=== PATIENT | female | born 1995 | race Two or more races ===

== ENCOUNTER 2022-06-04 19:17 | Emergency (ER) | payer BC ==
[~2022-06-04] VITALS: Ht 160 cm; Wt 66.8 kg
[2022-06-04 19:40] VITALS: BP 118/70
== END 2022-06-04 21:01 | disposition left against medical advice (07) ==
LOC: ER 19:17
DX: O46.91 Antepartum hemorrhage, unspecified, first trimester (principal); Z3A.01 Less than 8 weeks gestation of pregnancy; Z53.21 Procedure and treatment not carried out due to patient leaving prior to being seen by health care provider

== ENCOUNTER → 2024-02-24 | Outpatient (CLI) | payer BC ==
[2024-02-24 15:26] LABS: Basophils # (auto) 0.1 10 ^3/uL (0-0.2); Eosinophils # (auto) 0.2 10 ^3/uL (0-0.8); Hematocrit 39.2 % (36.0-46.0); Hemoglobin 13.2 g/dL (12.2-16.2); Lymphocytes # (auto) 2.6 10 ^3/uL (0.4-5.4); Lymphocytes % (auto) 31.8 % (10.0-50.0); Mean Corpuscular Hemoglobin 28.9 pg (28.0-32.0); Mean Corpuscular Hgb Conc. 33.6 g/dL (32.0-36.0); Monocytes # (auto) 0.5 10 ^3/uL (0-1.3); Neutrophils # (auto) 4.9 10 ^3/uL (1.6-8.6); Neutrophils % (auto) 59.2 % (37.0-80.0); Nucleated Red Blood Cells % 0.1 %; Red Blood Cells 4.56 10^6/uL (4.0-5.20); Red Cell Distribution Width 13.9 % (11.8-14.3); White Blood Cell 8.3 10^3/uL (4.4-10.8)
[2024-02-24 19:18] LABS: Follicle Stimulating Hormone 6.6 IU/L (SEE BELOW); Leuteinizing Hormone 6.8 IU/L
== END | disposition home or self-care (01) ==
LOC: LAB 15:08
PROVIDERS: ATTEND Obstetrics & Gynecology
DX: N93.9 Abnormal uterine and vaginal bleeding, unspecified (principal)
CPT/HCPCS: 36415; 82670; 83001; 83002; 84403; 84443; 85025

== ENCOUNTER 2024-08-01 09:16 | Emergency (ER) | payer BC ==
[~2024-08-01] VITALS: Ht 160 cm; Wt 71.3 kg
--- NOTE | 2024-08-01 09:56 | ED.PDOC ---
General HPI Comments 28-year-old female came in because of suprapubic flank pain for the past three months. She has been having on and off pain with no radiation of the pain. Pain is mild. Denies nausea vomiting. She does state that for the past week she has been having on and off spotting. She has not seen her primary care physician. She did have six pregnancies four live to miscarriages. She denies any other symptoms. Chief Complaint: Urinary Time Seen by MD: 09:18 Primary Care Provider: NONE Reviewed notes: Nurses Notes, Medications, Allergies Allergies: Coded Allergies: NO KNOWN ALLERGIES (Unverified , 08/01/24) Home Meds Active Scripts Nitrofurantoin Monohydrate Mac (Macrobid) 100 Mg Cap, 100 MG PO BID for 7 Days, #14 CAP Prov:SHERLY IBRAHIM MD 08/01/24 Information Source: Patient Mode of Arrival: Ambulatory Severity: Mild Timing: Months Duration: Since onset Onset: Spontaneous associated signs and symptoms: Flank Pain Past Medical History PAST MEDICAL HISTORY: Denies Surgical History: Denies all surgeries MGMT SPECIALIST History: No Pertinent MGMT SPECIALIST History Social History Smoker: Non-Smoker Alcohol: Denies ETOH Use Drugs: Denies Drug Use Constitutional: denies: chills, diaphoresis, fatigue, fever, malaise, sweats, weakness, others EENTM: denies: blurred vision, double vision, ear bleeding, ear discharge, ear drainage, ear pain, ear ringing, eye pain, eye redness, hearing loss, mouth pain, mouth swelling, nasal discharge, nose bleeding, nose congestion, nose pain, photophobia, tearing, throat pain, throat swelling, voice changes, others Respiratory: denies: cough, hemoptysis, orthopnea, SOB at rest, shortness of breath, SOB with excertion, stridor, wheezing, others Cardiovascular: denies: chest pain, dizzy spells, diaphoresis, Dyspnea on exertion, edema, irregular heart beat, left arm pain, lightheadedness, palpitations, PND, syncope, others Gastrointestinal: denies: abdomen distended, abdominal pain, blood streaked bowels, constipated, diarrhea, dysphagia, difficulty swallowing, hematemesis, melena, nausea, poor appetite, poor fluid intake, rectal bleeding, rectal pain, vomiting, others Genitourinary: reports: flank pain; denies: abnormal vagina bleeding, burning, dyspareunia, dysuria, frequency, hematuria, incontinence, pain, , vagina discharge, urgency, others Neurological: denies: dizziness, fainting, headache, left sided numbness, left sided weakness, numbness, paresthesia, pre-existing deficit, right sided numbness, right sided weakness, seizure, speech problems, tingling, tremors, weakness, others Integumetry: denies: bruises, change in color, change in hair/nails, dryness, laceration, lesions, lumps, rash, wounds, others Allergic/Immunocompromised: denies: Difficulty Healing, Frequent Infections, Hives, Itching, others Hematologic/Lymphatic: denies: anemia, blood clots, easy bleeding, easy bruising, swollen glands, others Endocrine: denies: excessive hunger, excessive sweating, excessive thirst, excessive urination, flushing, intolerance to cold, intolerance to heat, unexplained weight gain, unexplained weight loss, others Psychiatric: denies: anxiety, bipolar disorder, depression, hopeless, panic disorder, schizophrenia, sleepless, suicidal, others Physical Exam General Appearance: Moderate Distress HEENT: Normal ENT Inspection, Pharynx Normal, TMs Normal Neck: Full Range of Motion, Non-Tender, Normal, Normal Inspection Respiratory: Chest Non-Tender, Lungs Clear, No Accessory Muscle Use, No Respira tory Distress, Normal Breath Sounds Cardiovascular: No Edema, No JVD, No Murmur, No Gallop, Normal Peripheral Pulses, Regular Rate/Rhythm Breast Exam: Deferred Gastrointestinal: No Organomegaly, Non Tender, No Pulsatile Mass, Normal Bowel Sounds, Soft Genitalia: Deferred Pelvic: Deferred Rectal: Deferred Extremities: No calf tenderness, Normal capillary refill, Normal inspection, Normal range of motion, Non-tender, No pedal edema Musculoskeletal : Apperance: Normal Neurologic: Alert, lay out machine operator II-XII nml as Tested, No Motor Deficits, Normal Affect, Normal Mood, No Sensory Deficits Cerebellar Function: Normal Reflexes: Normal Skin: Dry, Normal Color, Warm Peripheral Pulses: 3+ Radial (R), 3+ Radial (L) Lymphatic: No Adenopathy Was a procedure done? Was a procedure done?: No Differential Diagnosis Kidney stone (Female): Musculoskeletal pain, Urinary obstruction, Urolithiasis X-Ray, Labs, Meds, VS Vital Signs Date Time Temp Pulse Resp B/P (MAP) Pulse Ox O2 Delivery O2 Flow Rate FiO2 08/01/24 10:38 98.3 78 16 112/78 (89) 100 98.3 08/01/24 10:38 78 16 100 Room Air* 0 21 08/01/24 09:20 98.7 75 18 122/71 (88) 97 Lab Test 08/01/24 09:51 08/01/24 09:25 Range/Units White Blood Count 9.1 4.4-10.8 10^3/uL Red Blood Count 4.45 4.0-5.20 10^6/uL Hemoglobin 13.6 12.2-16.2 g/dL Hematocrit 39.4 36.0-46.0 % Mean Corpuscular Volume 88.4 80.0-100.0 fL Mean Corpuscular Hemoglobin 30.5 28.0-32.0 pg Mean Corpuscular Hemoglobin Concent 34.5 32.0-36.0 g/dL Red Cell Distribution Width 13.1 11.8-14.3 % Platelet Count 322 140-450 10^3/uL Mean Platelet Volume 8.6 6.9-10.8 fL Neutrophils (%) (Auto) 74.3 37.0-80.0 % Lymphocytes (%) (Auto) 17.2 10.0-50.0 % Monocytes (%) (Auto) 6.0 0.0-12.0 % Eosinophils (%) (Auto) 1.9 0.0-7.0 % Basophils (%) (Auto) 0.6 0.0-2.0 % Neutrophils # (Auto) 6.8 1.6-8.6 10 ^3/uL Lymphocytes # (Auto) 1.6 0.4-5.4 10 ^3/uL Monocytes # (Auto) 0.5 0-1.3 10 ^3/uL Eosinophils # (Auto) 0.2 0-0.8 10 ^3/uL Basophils # (Auto) 0.1 0-0.2 10 ^3/uL Nucleated Red Blood Cells 0.0 % Sodium Level 138 136-145 mmol/L Potassium Level 4.4 3.5-5.1 mmol/L Chloride Level 106 98-107 mmol/L Carbon Dioxide Level 28 20-31 mmol/L Anion Gap 4 L 5-15 Blood Urea Nitrogen 13 9-23 mg/dL Creatinine 0.66 0.550-1.02 mg/dL Glomerular Filtration Rate Calc 122 >90 mL/min BUN/Creatinine Ratio 19.7 10.0-20.0 Serum Glucose 94 74-106 mg/dL Calcium Level 10.2 8.7-10.4 mg/dL Beta HCG, Quantitative 0.3 L 1.5-4.2 mIU/mL Urine Color Straw Yellow Urine Clarity Clear Clear Urine pH 5.5 5.0-9.0 Urine Specific [place] 1.004 1.001-1.035 Urine Protein 1+ H Negative Urine Ketones Negative Negative Urine Blood 3+ H Negative /uL Urine Nitrite Negative Negative Urine Bilirubin Negative Negative Urine Urobilinogen Normal Negative mg/dL Urine Leukocyte Esterase 2+ Negative /uL Urine RBC 1 0 - 4 /hpf Urine WBC 29 0 - 5 /hpf Urine Squamous Epithelial Cells None seen <5 /hpf Urine Bacteria None seen None Seen /hpf Urine Glucose Normal Normal mg/dL Urine Test Negative Negative Patient alert pain Complaining of suprapubic discomfort along with flank pain. Vitals stable. Answering all questions. Chronic symptoms. Reviewed her history. Abdomen is soft nontender. Did not do ultrasound because physical examination is pristine. Kidney function within normal limits. UA shows UTI. Was given prescription of Macrobid antibiotic. Explained to the patient that she will need follow up with her primary care physician. Was told to come back if there is any problem. Time of 1ST Reevaluation: 09:55 Reevaluation 1ST: Unchanged Patient Education/Counseling: Diagnosis, Treatment, Prognosis, Need For Follow Up Family Education/Counseling: No Family Present Departure 1 Departure Time of Disposition: 09:56 Impression: Primary Impression: Vaginal bleeding Additional Impression: UTI (urinary tract infection) Qualified Codes: N30.00 - Acute cystitis without hematuria Disposition: 01 HOME / SELF CARE / HOMELESS Condition: Good e-Prescriptions Nitrofurantoin Monohydrate Mac (Macrobid) 100 Mg Cap 100 MG PO BID for 7 Days, #14 CAP Prov: SHERLY IBRAHIM MD 08/01/24 Discharged With: Self Critical Care Note Critical Care Time?: No Stability Stability form required: No Heart Score Heart Score: Heart Score Response (Comments) Value History N/A 0 EKG N/A 0 Age N/A 0 Risk Factors N/A 0 Troponin N/A 0 Total 0 SHERLY IBRAHIM MD Aug 01, 2024 09:56
[2024-08-01 10:00] LABS: Urine Bacteria None Seen /hpf (None Seen)
[2024-08-01 10:13] LABS: Basophils # (auto) 0.1 10 ^3/uL (0-0.2); Basophils % (auto) 0.6 % (0.0-2.0); Eosinophils # (auto) 0.2 10 ^3/uL (0-0.8); Eosinophils % (auto) 1.9 % (0.0-7.0); Hematocrit 39.4 % (36.0-46.0); Hemoglobin 13.6 g/dL (12.2-16.2); Lymphocytes # (auto) 1.6 10 ^3/uL (0.4-5.4); Lymphocytes % (auto) 17.2 % (10.0-50.0); Mean Corpuscular Hemoglobin 30.5 pg (28.0-32.0); Mean Corpuscular Hgb Conc. 34.5 g/dL (32.0-36.0); Mean Corpuscular Volume 88.4 fL (80.0-100.0); Monocytes # (auto) 0.5 10 ^3/uL (0-1.3); Neutrophils # (auto) 6.8 10 ^3/uL (1.6-8.6); Neutrophils % (auto) 74.3 % (37.0-80.0); Platelet Count (auto) 322 10^3/uL (140-450); Red Blood Cells 4.45 10^6/uL (4.0-5.20); Red Cell Distribution Width 13.1 % (11.8-14.3); White Blood Cell 9.1 10^3/uL (4.4-10.8)
[2024-08-01 10:21] LABS: Chloride 106 mmol/L (98-107); Potassium 4.4 mmol/L (3.5-5.1); Sodium 138 mmol/L (136-145)
[2024-08-01 10:22] LABS: Anion Gap 4 (5-15); Calcium 10.2 mg/dL (8.7-10.4); Carbon Dioxide 28 mmol/L (20-31)
[2024-08-01 10:23] LABS: Urine Blood 3+ /uL (Negative); Urine Clarity Clear (Clear); Urine Protein, UAD 1+ (Negative); Urine Specific Gravity 1.004 (1.001-1.035); Urine Urobilinogen Normal (Negative); Urine WBC 29 /hpf (0 - 5); Urine pH 5.5 (5.0-9.0)
[2024-08-01 10:25] LABS: Urine Color Straw (Yellow)
[2024-08-01 10:27] LABS: BUN/Creatinine Ratio 19.7 (10.0-20.0); Blood Urea Nitrogen 13 mg/dL (9-23); Glucose 94 mg/dL (74-106)
[2024-08-01 10:38] VITALS: PULSE 78; RESP 16; O2SAT 100
[2024-08-01] MEDS ORDERED: NITR-87 PO (11:31)
[2024-08-01 12:08] VITALS: BP 115/79; PULSE 79; RESP 16; TEMP 98.2; O2SAT 99
== END 2024-08-01 12:00 | disposition home or self-care (01) ==
LOC: ER 09:16
DX: N93.9 Abnormal uterine and vaginal bleeding, unspecified (principal); R10.2 Pelvic and perineal pain; N39.0 Urinary tract infection, site not specified
CPT/HCPCS: 36415; 80048; 81001; 81025; 84702; 85025

== ENCOUNTER 2025-03-27 20:31 | Inpatient (IN) | payer BC ==
[~2025-03-27] VITALS: Ht 160 cm; Wt 75.0 kg
[~2025-03-27 20:31] MED LIST: NITR-87 PO
[2025-03-27 21:00] VITALS: PULSE 113; RESP 24; O2SAT 99
--- NOTE | 2025-03-27 21:11 | ED.PDOC ---
History of Present Illness HPI Comments 29 y/o F presents with spouse for c/c abnormal vaginal bleeding, with associated clot production and back and bilateral pelvic pain, shortness of breath, and lightheadedness. Patient endorses on being 7x weeks with her 8th , currently ([id number]). Bleeding is reported to have begun with light spotting at around 1600, this afternoon, and has, progressively, worsened since then. Patient reports on going through a miscarriage, currently, after being told her was immanent of having one following previous [facility] appointment, where ultrasound showed absence of a heartbeat, 1x week ago. Patient informs of going through 5x pads, already, with last one having to be ch anged out 20x minutes prior to arrival. Only significant history of preDM. No recent injuries, falls, or sexual intercourse endorsed. Denies any urinary symptoms, abdominal pain, cough, congestion, dizziness, fever, chills, or further associated symptoms. Chief Complaint: Vaginal Bleed Time Seen by MD: 20:45 Primary Care Provider: NONE Reviewed Notes: Nurses Notes, Medications, Allergies Allergies: Coded Allergies: NO KNOWN ALLERGIES (Unverified , 08/01/24) Home Meds Active Scripts Nitrofurantoin Monohydrate Mac (Macrobid) 100 Mg Cap, 100 MG PO BID for 7 Days, #14 CAP Prov:SHERLY IBRAHIM MD 08/01/24 Information Source: Patient Mode of Arrival: Wheelchair Severity: Moderate Timing: Hours Duration: Since onset Prehospital treatment: None Review of Systems: REVIEW OF SYSTEMS: No fever, no chills, HEENT: No neck pain, no blurred vision Cardiac: Lightheadedness. No chest pain. No palpitations. Lungs: Shortness of breath, GI: No abdominal pain, no vomiting : Vaginal bleeding Musculoskeletal: Pelvic and back pain Skin: No rash, no wound Neuro: No headache, no dizziness, no syncope Vital Signs Vital Signs Date Time Temp Pulse Resp B/P (MAP) Pulse Ox O2 Delivery O2 Flow Rate FiO2 03/28/25 08:00 Room Air* 0 21 03/28/25 08:00 98.3 82 15 100/56 (71) 97 98.3 Physical Exam General: Awake, alert and oriented. No acute distress. Skin: Skin in warm, dry and intact without rashes or lesions. HEENT: The head is normocephalic and atraumatic. Conjunctivae are clear without exudates or hemorrhage. Sclera is non-icteric. Neck: Normal range of motion. No JVD. Cardiac: Regular rate Gastrointestinal: Suprapubic tenderness Respiratory: No signs of respiratory distress. No Stridor. Extremities: Upper and lower extremities are atraumatic in appearance without d eformity. Neurological: The patient is awake, alert and oriented to person, place, and time with normal speech. Speech is clear. There is no facial asymmetry. Psychiatric: Appropriate mood and affect. Good judgement and insight. Past Medical History Past Medical History (Other): Pre diabetes Surgical History: Denies all surgeries EVENTS ADMINISTRATIVE ASSISTANT History: No Pertinent EVENTS ADMINISTRATIVE ASSISTANT History 8 Para 4 AB 4 Social History Smoker: Non-Smoker Alcohol: Denies ETOH Use Drugs: Denies Drug Use Was a procedure done? Was a procedure done?: No EKG EKG : Pulse Rate (adult): 81 [place]: Normal Cardiac Rhythm: NSR Block: None Hypertrophy: None ST: Normal Differential Dx Considerations may include: Differential diagnoses considered include: Abdominal aortic aneurysm, WI, esophageal rupture, intestinal obstruction, mesenteric ischemia, perforated viscus or solid organ rupture, CHF with hepatomegaly, pneumonia, abscess, appendicitis, biliary disease, diverticulitis, gastritis, gastroenteritis, hepatitis, hernia, inflammatory bowel disease, pancreatitis, peptic ulcer disease, urinary tract infection, ureteral colic, constipation, GERD, irritable syndrome, abdominal wall pain, nonspecific abdominal pain, herpes zoster, nephrolithiasis. [ ]Also ruptured ectopic , ovarian torsion/cyst, tubo- ovarian abscess, PID, endometriosis, mittleschmerz, miscarriage X-Ray, Labs, Meds, VS Vital Signs Date Time Temp Pulse Resp B/P (MAP) Pulse Ox O2 Delivery O2 Flow Rate FiO2 03/28/25 08:00 Room Air* 0 21 03/28/25 08:00 98.3 82 15 100/56 (71) 97 98.3 03/28/25 08:00 97 03/28/25 06:00 74 16 103/58 (73) 97 03/28/25 04:59 81 03/28/25 04:00 78 17 101/55 (70) 95 03/28/25 02:20 99 Room Air* 0 21 03/28/25 02:00 98.0 90 16 104/62 (76) 98 98.0 03/28/25 01:00 98.1 85 18 104/56 (72) 99 98.1 03/27/25 23:00 100 18 115/67 (83) 98 03/27/25 21:00 113 24 99 Room Air* 0 21 03/27/25 21:00 97.9 119 24 104/53 (70) 97 97.9 03/27/25 20:51 97.7 145 16 99/77 (84) 96 97.7 Lab Test 03/28/25 05:24 03/28/25 00:38 03/27/25 21:30 03/27/25 20:54 Range/Units Hemoglobin 8.6 L 9.9 #L 12.0 L 12.2-16.2 g/dL Hematocrit 25.3 #L 28.9 #L 35.0 L 36.0-46.0 % White Blood Count 11.3 H 4.4-10.8 10^3/uL Red Blood Count 4.03 4.0-5.20 10^6/uL Mean Corpuscular Volume 86.9 80.0-100.0 fL Mean Corpuscular Hemoglobin 29.7 28.0-32.0 pg Mean Corpuscular Hemoglobin Concent 34.2 32.0-36.0 g/dL Red Cell Distribution Width 13.2 11.8-14.3 % Platelet Count 390 140-450 10^3/uL Mean Platelet Volume 8.4 6.9-10.8 fL Neutrophils (%) (Auto) 70.3 37.0-80.0 % Lymphocytes (%) (Auto) 21.1 10.0-50.0 % Monocytes (%) (Auto) 6.7 0.0-12.0 % Eosinophils (%) (Auto) 1.3 0.0-7.0 % Basophils (%) (Auto) 0.6 0.0-2.0 % Neutrophils # (Auto) 8.0 1.6-8.6 10 ^3/uL Lymphocytes # (Auto) 2.4 0.4-5.4 10 ^3/uL Monocytes # (Auto) 0.8 0-1.3 10 ^3/uL Eosinophils # (Auto) 0.2 0-0.8 10 ^3/uL Basophils # (Auto) 0.1 0-0.2 10 ^3/uL Nucleated Red Blood Cells 0.0 % Sodium Level 138 136-145 mmol/L Potassium Level 3.7 3.5-5.1 mmol/L Chloride Level 105 98-107 mmol/L Carbon Dioxide Level 22 20-31 mmol/L Anion Gap 11 5-15 Blood Urea Nitrogen 10 9-23 mg/dL Creatinine 0.65 0.550-1.02 mg/dL Glomerular Filtration Rate Calc 121 >90 mL/min BUN/Creatinine Ratio 15.4 10.0-20.0 Serum Glucose 126 H 74-106 mg/dL Calcium Level 9.9 8.7-10.4 mg/dL Beta HCG, Quantitative 25226.0 H 1.5-4.2 mIU/mL Urine Color Colorless Yellow Urine Clarity Turbid H Clear Urine pH 5.5 5.0-9.0 Urine Specific [place] 1.009 1.001-1.035 Urine Protein Trace H Negative Urine Ketones Negative Negative Urine Blood 3+ H Negative /uL Urine Nitrite Negative Negative Urine Bilirubin Negative Negative Urine Urobilinogen Normal Negative mg/dL Urine Leukocyte Esterase 1+ Negative /uL Urine RBC 1338 0 - 4 /hpf Urine Microscopic WBC 5 0-5 /HPF Urine Squamous Epithelial Cells None seen <5 /hpf Urine Bacteria None seen None Seen /hpf Urine Mucus Few None Seen Urine Glucose Normal Normal mg/dL Test 03/27/25 20:50 Range/Units POC Glucose 126 H 70-106 mg/dl Current Medications Medications (Trade) Dose Ordered Sig/Ingrid Route Start Time Stop Time Status Last Admin Acetaminophen (Tylenol Tablet Or Capsule) 1,000 mg ONCE ONCE PO 03/27/25 21:15 03/27/25 21:16 DC 03/27/25 21:23 Ketorolac Tromethamine (Toradol Injection) 15 mg ONCE ONCE IV 03/28/25 00:30 03/28/25 00:31 DC 03/28/25 00:25 Sodium Chloride 1,000 ml @ 1,000 mls/hr Q1H ONCE IV 03/28/25 00:30 03/28/25 01:29 DC 03/27/25 22:15 Sodium Chloride 1,000 ml @ 1,000 mls/hr Q1H ONCE IV 03/28/25 00:30 03/28/25 01:29 DC 03/28/25 00:25 Oxytocin 1,000 ml @ 150 mls/hr Q6H40M ONCE IV 03/28/25 03:00 03/28/25 09:39 DC 03/28/25 04:52 [place] [id number] Ph: [phone] DIAGNOSTIC IMAGING Diagnostic Imaging Report : [id number] Signed PATIENT: SHEREE AREVALO ACCT: [id number] UNIT: [id number] : 1995 LOC: ER ROOM / BED: / AGE / SEX: 29 / F ADM STATUS: REG ER SERVICE 04 ORDERING PHYSICIAN: TOLU RAZO MD PROCEDURE(s): OB4US - OB ULTRASOUND COMP LESS 14WKS REASON: Pelvic Pain ORDER NUMBER(s): [id number], ACCESSION NUMBER(s): [id number] OB ULTRASOUND <14 WEEKS: HISTORY: Pelvic Pain TECHNIQUE: Multiple real-time grayscale sonographic images of the pelvis with duplex Doppler color flow, spectral and M-mode analysis. TRANSDUCERS: COMPARISON: None FINDINGS: Endometrium measures approximately 13 mm in thickness with mildly heterogeneous echogenicity and small amount of fluid. No intrauterine gestational sac is present. Right ovary measures approximately 2.8 x 2.8 x 2.4 cm and appears unremarkable with normal Doppler color flow. Left ovary measures approximately 2.6 x 1.7 x 1.9 cm and appears unremarkable with normal Doppler color flow. No evidence of pelvic mass or free fluid/fluid collection. IMPRESSION: Endometrium measures approximately 13 mm in thickness with mildly heterogeneous echogenicity and small amount of fluid. No intrauterine gestational sac is present. ATED BY: MARKEL MUSTAFA MD DICTATED DATE/TIME: 03/27/252344 SIGNED BY: MARKEL MUSTAFA MD SIGNED DATE/TIME: 03/27/252344 CC: Time of 1ST Reevaluation: 21:15 Reevaluation 1ST: Unchanged Patient Education/Counseling: Treatment, Other (v) Family Education/Counseling: Treatment, Other (need for admission ) SEPSIS Sepsis Screen Date sepsis recognized/suspect: Mar 27, 2025 Time Sepsis recognized/suspect: 2050 Recent Procedure: No On Antibiotic Therapy: No Respiratory Rate >20: No Heart Rate >90: Yes Temp<36 C (96.8 F) or >38.3 C: No SBP <90 or MAP <65 mmHG: No New Acute Mental Status Change: No Is the patient on CPAP, BIPAP,: No Physician Orders Ob Ultrasound Comp Less 14wks (03/27/25 21:05) Ob Trans Vaginal Us (03/27/25 ) * Night Worker Consultation (03/28/25 02:49) Vital Signs Date Time Temp Pulse Resp B/P (MAP) Pulse Ox O2 Delivery O2 Flow Rate FiO2 03/28/25 08:00 Room Air* 0 21 03/28/25 08:00 98.3 82 15 100/56 (71) 97 98.3 03/28/25 08:00 97 03/28/25 06:00 74 16 103/58 (73) 97 03/28/25 04:59 81 03/28/25 04:00 78 17 101/55 (70) 95 03/28/25 02:20 99 Room Air* 0 21 03/28/25 02:00 98.0 90 16 104/62 (76) 98 98.0 03/28/25 01:00 98.1 85 18 104/56 (72) 99 98.1 03/27/25 23:00 100 18 115/67 (83) 98 03/27/25 21:00 113 24 99 Room Air* 0 21 03/27/25 21:00 97.9 119 24 104/53 (70) 97 97.9 03/27/25 20:51 97.7 145 16 99/77 (84) 96 97.7 Laboratory Tests Test 03/27/25 21:30 White Blood Count 11.3 10^3/uL (4.4-10.8) H Departure 1 Departure Time of Disposition: 02:58 Impression: Primary Impression: Miscarriage Additional Impressions: Vaginal bleeding Anemia Disposition: ADMITTED INPATIENT Condition: Stable Comments 29-year-old female with miscarriage and continued vaginal bleeding. Patient needs declined from -9.9/28.9 during the ED observation @[address] AYALA (child care leader) RECOMMENDATION IS LR W/ 20 UNITS OF PITOCIN AT 150 CC/HR X 3 HRS CYTOTEC VAGINALLY DOSE: 200 MCG X 4 TABS =800 MCG TOTAL WILL NOT BENEFIT FROM D&C AT THIS TIME DISCUSSED RECOMMENDATIONS WITH PATIENT. SHE DECLINED CYTOTEC. Patient admitted to hospitalist service for further treatment, evaluation and monitoring. Extensive evaluation was performed in attempt to identify or rule out: (See differential diagnosis section) The following tests were ordered, and results were reviewed by me and discussed with patient: (See diagnostic results section) The following test were independently interpreted by me: N/A I reviewed and agreed with the following test results read by other providers: Pelvic ultrasound I reviewed the following notes from the pt's past medical encounters: June 04, 2022 and August 01, 2024 encounters for vaginal bleeding/cramping + preg and vaginal bleeding, respectively Additional information was gathered from interviewing the following independent historians: N/A Discussion of management or test interpretation with external physician/other qualified health home health care social worker: DOCTOR AYALA Decision regarding hospitalization or escalation of hospital level of care: Risk and benefits of admission for further treatment of patient's condition was considered. Due to patient's current clinical condition, high risk of decline and poor outcome if discharged and need for further inpatient management and monitoring, patient will be admitted to the hospital. Critical Care Note Critical Care Time?: No Stability Stability form required: No Heart Score Heart Score: Heart Score Response (Comments) Value History N/A 0 EKG N/A 0 Age N/A 0 Risk Factors N/A 0 Troponin N/A 0 Total 0 I personally scribed for TOLU RAOZ MD ([email or web address]) on 03/27/25 at 21:11. Electronically submitted by David Holman ([email or web address]). I personally scribed for TOLU RAZO MD ([email or web address]) on 03/28/25 at 04:59. Electronically submitted by David Holman ([email or web address]). TOLU RAZO MD Mar 27, 2025 21:11
[2025-03-27] MEDS: ACETAMINOPHEN 500 MG TAB or CAP PO ONE (21:23)
[2025-03-27 21:45] LABS: Hematocrit 35.0 % (36.0-46.0); Hemoglobin 12.0 g/dL (12.2-16.2); Mean Corpuscular Hemoglobin 29.7 pg (28.0-32.0); Mean Corpuscular Volume 86.9 fL (80.0-100.0); Nucleated Red Blood Cells % 0.0 %
[2025-03-27 21:52] LABS: Chloride 105 mmol/L (98-107); Potassium 3.7 mmol/L (3.5-5.1); Sodium 138 mmol/L (136-145)
[2025-03-27 21:53] LABS: Anion Gap 11 (5-15); Calcium 9.9 mg/dL (8.7-10.4); Carbon Dioxide 22 mmol/L (20-31)
[2025-03-27 21:58] LABS: BUN/Creatinine Ratio 15.4 (10.0-20.0); Blood Urea Nitrogen 10 mg/dL (9-23)
[2025-03-27 21:59] LABS: Glucose 126 mg/dL (74-106)
[2025-03-27] MEDS: SODIUM CHLORIDE 0.9% 1,000 ML IV ONE (22:15)
--- NOTE | 2025-03-27 23:48 | DVH ---
OB ULTRASOUND <14 WEEKS: HISTORY: Pelvic Pain TECHNIQUE: Multiple real-time grayscale sonographic images of the pelvis with duplex Doppler color f low, spectral and M-mode analysis. TRANSDUCERS: COMPARISON: None FINDINGS: Endometrium measures approximately 13 mm in thickness with mildly heterogeneous echogenicity and smal l amount of fluid. No intrauterine gestational sac is present. Right ovary measures approximately 2.8 x 2.8 x 2.4 cm and appears unremarkable with normal Doppler co vidal flow. Left ovary measures approximately 2.6 x 1.7 x 1.9 cm and appears unremarkable with normal Doppler col or flow. No evidence of pelvic mass or free fluid/fluid collection. IMPRESSION: Endometrium measures approximately 13 mm in thickness with mildly heterogeneous echogenicity and smal l amount of fluid. No intrauterine gestational sac is present.
[2025-03-28] MEDS: KETOROLAC TROMETH 30 MG/ML 1ML VIAL IV ONE (00:25)
[2025-03-28] MEDS: SODIUM CHLORIDE 0.9% 1,000 ML IV ONE (00:25)
[2025-03-28 01:16] LABS: Hematocrit 28.9 % (36.0-46.0); Hemoglobin 9.9 g/dL (12.2-16.2)
[2025-03-28 02:20] VITALS: O2SAT 99
[2025-03-28 02:21] LABS: Urine Protein, UAD TRACE (Negative)
[2025-03-28] MEDS: LACT. RINGERS/OXYTOCIN 20UNITS 1,000 ML IV ONE (04:52)
[2025-03-28 05:49] LABS: Hematocrit 25.3 % (36.0-46.0); Hemoglobin 8.6 g/dL (12.2-16.2)
[2025-03-28] MEDS ORDERED: DOCUSATE SOD 100 MG CAP PO PRN (08:15)
[2025-03-28] MEDS ORDERED: ACETAMINOPHEN 325 MG TAB PO PRN (08:15)
[2025-03-28] MEDS ORDERED: HYDROcodone-ACET 5/325MG TAB PO PRN (08:15)
[2025-03-28] MEDS ORDERED: ONDANSETRON HCL 4 MG/2 ML VIAL IV PRN (08:15)
--- NOTE | 2025-03-28 08:19 | DVHHP2 ---
History of Present Illness Reason for Visit: Vagninal Bleeding History of Present Illness Shamika Read is a 29-year-old female with no significant past medical history, who came in for vaginal bleeding. Patient was about 7 weeks . Last week she went to the doctor and was told there were no heart tones, and to wait she would pass the baby naturally. Yesterday about 1600 she states she began bleeding at home. She passed the baby without a problem, but then she began to bleed heavily. The bleeding continued to increase with large clots being passed prompting her to come to the hospital. Past Surgical History: None Family History: None Smoke: No ALCOHOL: none Drugs: None Lives: with Family Domestic Violence: Neg Review of Systems Constitutional: Yes: Weakness; No: Fever, Chills, Sweats, Malaise, Other Eyes: No: Pain, Vision change, Conjunctivae inflammation, Eyelid inflammation, Other, Redness ENT: No: Ear pain, Ear discharge, Nose pain, Nose discharge, Nose congestion, Mouth pain, Mouth swelling, Throat pain, Throat swelling, Other Respiratory: No: Cough, Dry, Shortness of breath, SOB with excertion, Wheezing, Hemoptysis, Pleuritic Pain, Sputum, Wheezing, Other Cardiovascular: No: Chest Pain, Palpitations, Orthopnea, Paroxysmal Noc. Dyspnea, Edema, Lt Headedness, Other Gastrointestinal: Abdominal Pain (Pelvic), Other (Heavy vaginal bleeding); No: Nausea, Vomiting, Diarrhea, Constipation, Melena, Hematochezia Genitourinary: No Dysuria, No Frequency, No Incontinence, No Hematuria, No Retention, No Other Musculoskeletal: No: other, neck pain, shoulder pain, arm pain, back pain, hand pain, leg pain, foot pain Skin: No: Rash, Lesions, Jaundice, Bruising, Other Neurological: No: Weakness, Numbness, Incoordination, Change in speech, Confusion, Seizures, Other Allergies: Coded Allergies: NO KNOWN ALLERGIES (Unverified , 08/01/24) Exam Vital Signs Vital Signs Date Time Temp Pulse Resp B/P (MAP) Pulse Ox O2 Delivery O2 Flow Rate FiO2 03/28/25 08:00 97 03/28/25 06:00 16 103/58 (73) 97 03/28/25 02:20 Room Air* 0 21 03/28/25 02:00 98.0 98.0 General Appearance: Alert, Oriented X3, Cooperative, mild distress HEENT: Atraumatic, PERRLA Respiratory: Clear to auscultation, Normal air movement Cardiovascular: Regular rate, Normal S1, Normal S2 Abdominal: Normal bowel sounds, Soft, Other (pelvic pain, heavy vaginal blee ding) Extremities: No clubbing, No cyanosis, No edema, Normal pulses, No tenderness/swelling Skin: No rashes, No breakdown, No significant lesion Neuro: Normal gait, Normal speech, Strength at 5/5 X4 ext Psych/Mental Status: Mental status NL, Mood NL Labs/Xrays Labs Test 03/28/25 05:24 03/27/25 21:30 03/27/25 20:54 03/27/25 20:50 Range/Units Hemoglobin 8.6 L 12.2-16.2 g/dL Hematocrit 25.3 #L 36.0-46.0 % White Blood Count 11.3 H 4.4-10.8 10^3/uL Red Blood Count 4.03 4.0-5.20 10^6/uL Mean Corpuscular Volume 86.9 80.0-100.0 fL Mean Corpuscular Hemoglobin 29.7 28.0-32.0 pg Mean Corpuscular Hemoglobin Concent 34.2 32.0-36.0 g/dL Red Cell Distribution Width 13.2 11.8-14.3 % Platelet Count 390 140-450 10^3/uL Mean Platelet Volume 8.4 6.9-10.8 fL Neutrophils (%) (Auto) 70.3 37.0-80.0 % Lymphocytes (%) (Auto) 21.1 10.0-50.0 % Monocytes (%) (Auto) 6.7 0.0-12.0 % Eosinophils (%) (Auto) 1.3 0.0-7.0 % Basophils (%) (Auto) 0.6 0.0-2.0 % Neutrophils # (Auto) 8.0 1.6-8.6 10 ^3/uL Lymphocytes # (Auto) 2.4 0.4-5.4 10 ^3/uL Monocytes # (Auto) 0.8 0-1.3 10 ^3/uL Eosinophils # (Auto) 0.2 0-0.8 10 ^3/uL Basophils # (Auto) 0.1 0-0.2 10 ^3/uL Nucleated Red Blood Cells 0.0 % Sodium Level 138 136-145 mmol/L Potassium Level 3.7 3.5-5.1 mmol/L Chloride Level 105 98-107 mmol/L Carbon Dioxide Level 22 20-31 mmol/L Anion Gap 11 5-15 Blood Urea Nitrogen 10 9-23 mg/dL Creatinine 0.65 0.550-1.02 mg/dL Glomerular Filtration Rate Calc 121 >90 mL/min BUN/Creatinine Ratio 15.4 10.0-20.0 Serum Glucose 126 H 74-106 mg/dL Calcium Level 9.9 8.7-10.4 mg/dL Beta HCG, Quantitative 48492.0 H 1.5-4.2 mIU/mL Urine Color Colorless Yellow Urine Clarity Turbid H Clear Urine pH 5.5 5.0-9.0 Urine Specific [place] 1.009 1.001-1.035 Urine Protein Trace H Negative Urine Ketones Negative Negative Urine Blood 3+ H Negative /uL Urine Nitrite Negative Negative Urine Bilirubin Negative Negative Urine Urobilinogen Normal Negative mg/dL Urine Leukocyte Esterase 1+ Negative /uL Urine RBC 1338 0 - 4 /hpf Urine Microscopic WBC 5 0-5 /HPF Urine Squamous Epithelial Cells None seen <5 /hpf Urine Bacteria None seen None Seen /hpf Urine Mucus Few None Seen Urine Glucose Normal Normal mg/dL POC Glucose 126 H 70-106 mg/dl OB ULTRASOUND <14 WEEKS: TRANSDUCERS: COMPARISON: None FINDINGS: Endometrium measures approximately 13 mm in thickness with mildly heterogeneous echogenicity and small amount of fluid. No intrauterine gestational sac is present. Right ovary measures approximately 2.8 x 2.8 x 2.4 cm and appears unremarkable with normal Doppler color flow. Left ovary measures approximately 2.6 x 1.7 x 1.9 cm and appears unremarkable with normal Doppler color flow. No evidence of pelvic mass or free fluid/fluid collection. IMPRESSION: Endometrium measures approximately 13 mm in thickness with mildly heterogeneous echogenicity and small amount of fluid. No intrauterine gestational sac is present. Assessment/Plan Assessment/Plan Assessment: Vaginal bleeding, Anemia, Miscarriage, Plan: Admit to Med-Surg, PLANE CAPTAIN consult, Monitor/Manage H&H closely, IV hydration, IV Pitocin, If hemoglobin continues to drop transfuse PRBC, Plan discussed with: Patient, Spouse My Orders Orders - CRISELDA DE LUNA Procedure Category Date Status Time Admit ADMIT 03/28/25 Transmitted 08:11 Code Status CODE 03/28/25 Transmitted 08:11 Hydrocodone-Acet PHA 03/28/25 Transmitted 5/325mg Tab ([place] 08:15 Ondansetron Hcl PHA 03/28/25 Transmitted (Zofran) 08:15 Docusate Sodium PHA 03/28/25 Transmitted Capsule (Colace 08:15 Complete Blood Count LAB 03/29/25 Verified 04:00 Comprehensive LAB 03/29/25 Verified Metabolic Panel 04:00 Condition: Serious TEZ 03/28/25 Transmitted 08:11 Acetaminophen Tablet PHA 03/28/25 Transmitted (Tylenol Tablet) 08:15 Regular Diet DIET 03/28/25 Transmitted Breakfast Hemoglobin & LAB 03/28/25 Transmitted Hematocrit 09:30 Date of Service: Mar 28, 2025 Billing Provider: CRISELDA DE LUNA Common Visit Codes: 22583-[id number] INP/OBS CARE (MOD) CRISELDA DE LUNA Mar 28, 2025 08:19
[2025-03-28 09:42] LABS: Hematocrit 25.1 % (36.0-46.0); Hemoglobin 8.7 g/dL (12.2-16.2)
[2025-03-28 10:00] VITALS: BP 113/65; PULSE 94; RESP 12; O2SAT 98
== END 2025-03-28 14:00 | disposition left against medical advice (07) | DRG 779 ==
LOC: ER 20:31 → OVERFLOW 03-28 08:11
PROVIDERS: ADMIT Internal Medicine; ATTEND Internal Medicine
DX: O03.9 Complete or unspecified spontaneous abortion without complication (principal); O99.011 Anemia complicating pregnancy, first trimester; Z3A.01 Less than 8 weeks gestation of pregnancy; Z53.29 Procedure and treatment not carried out because of patient's decision for other reasons
CPT/HCPCS: 36415; 76801; 76817; 80048; 81001; 82962; 84702; 85014; 85018; 85025; 86850; 86900; 86901; 96360; G0378; J1885; J2590

== ENCOUNTER 2025-03-31 10:26 | Inpatient (IN) | payer BC ==
[~2025-03-31] VITALS: Ht 160 cm; Wt 77.0 kg
--- NOTE | 2025-03-31 10:44 | ED.PDOC ---
SAILING MASTER HPI Comments HPI: Poor Historian. 29-YEAR-OLD FEMALE PRESENTS TO THE ED FOR EVALUATION OF VAGINAL BLEED. Patient is status post miscarriage this past Friday and she was evaluated in the ER. She has been having some vaginal spotting but got worse today passing some clots and having some pelvic cramps. One pad per hour roughly a vaginal bleed. Patient appears pale tachycardic and weak. Patient took some Tylenol this morning for pain control. When patient had any miscarriage was approximately 11 weeks gestation but she said there was no heartbeat that week then. Patient is for miscarriages. Past Medical History: Past Surgical History: REVIEW OF SYSTEMS: CONSTITUTIONAL: Denies acute: fever, diaphoresis, chills, HEAD: Denies acute: headache, photophobia Eyes: Denies acute: Double vision, vision loss, eye pain, eye discharge. EARS: Denies acute: tinnitus, hearing loss, ear discharge, ear pain, THROAT: Denies acute: sore throat, swelling, difficulty swallowing , pain with swallowing, change in voice. NECK: Denies acute: neck pain, neck swelling, stiff neck. HEART: Denies acute : chest pain, palpitations, LUNGS: Denies acute: SOB, wheezing, cough, hemoptysis ABDOMEN: Denies acute: abdominal pain, Nausea, Vomiting, diarrhea, melena , hematemesis, hematochezia SKIN: Denies acute: rash, redness, lesions, itchiness. EXTREMITIES: Denies acute: calf pain, numbness, tingling, weakness, denies pain in extremity. Denies acute: Low back pain. Neuro: Denies acute: focal neurological deficit, motor or sensory focal neurological deficit, tremors, seizure like activity, confusion, dizziness, change in mental status, loss of bowel or bladder function, cauda equina like symptoms. : Denies acute: dysuria, hematuria, flank pain, increase in urinary frequency. PSYCH: Denies acute: hallucination, suicidal ideation, homicidal ideation. FEMALE: Denies acute: foul odor, unusual discharge. PHYSICAL EXAM: General: ---[id number]-----acute distress, awake and alert. Head: normocephalic, atraumatic. Neck: supple, trachea is midline, no swelling. Throat: Normal phonation. Eyes:, no erythema, no purulent discharge, no proptosis, no icterus. Heart: regular TACHYCARDIA, no significant murmur appreciated. Lungs: no apparent respiratory distress, Able to speak in full sentences. No wheezing, no rhonchi, no crackles. No stridors Clear to auscultation bilaterally. Abdomen: Lower/pelvic tender to palpation, non distended, soft, no guarding, no rebound, + bowel sounds. Neuro: Awake, Alert, oriented to name, self, situation, follows commands GCS=15. Speech is normal. Skin: no petechia, no purpura, no cyanosis, NOTED-pale, not jaundice. Lower extremities: --no - Pitting edema no deformity, no focal swelling, no calf TTP. Makes eye contact. moves all four extremities. Face: no apparent facial droop. ED COURSE: DISCLAIMER: This medical document was created using an electronic medical record system with voice recognition software and computerized dictation system. Although this document has been carefully reviewed, there might still be some phonetic and typographical errors. Occasional wrong-word or "sound-alike" substitutions may have occurred due to the inherent limitations of voice recognition software. These areas are purely typographical due to imperfections of the software programs and do not reflect any compromise in the patient's medical care. Please read the chart carefully and recognize, using context, where these substitutions have occurred. Chief Complaint: Abdominal Pain Time Seen by MD: 10:43 Reviewed Notes: Medications, Allergies Allergies: Coded Allergies: NO KNOWN ALLERGIES (Unverified , 08/01/24) Home Meds Active Scripts Cephalexin Monohydrate (Cephalexin) 500 Mg Cap, 1 CAP PO TID for 5 Days, #15 CAP Prov:SAVI OGDEN NP 04/02/25 Information Source: Patient Mode of Arrival: Ambulatory Was a procedure done? Was a procedure done?: No Differential Diagnosis (GOVERNMENT TEACHER) Vaginal Bleeding: - Complete, - Incomplete, - Inevitable, - Missed, - Threatened, Abruptio Placentae, Blood Loss Anemia, Cervicitis, Dysmenorrhea, Ectopic , Hormonal, Menorrhagia, Menometrorrhagia, Menstrual Bleeding, Myomatous Uterus, PID, Placenta Previa, Precipitous Hct, Trauma, UTI, Vaginitis, Other (Differential diagnosis includes but not limited to DU B, menorrhea, metromenorrhagia, neoplasm, coagulopathy,, trauma, miscarriage, placenta previa, placental abruption, ) X-Ray, Labs, Meds, VS Vital Signs Date Time Temp Pulse Resp B/P (MAP) Pulse Ox O2 Delivery O2 Flow Rate FiO2 03/31/25 12:00 116 14 110/62 (78) 99 03/31/25 11:00 99.6 126 14 116/67 (83) 97 99.6 03/31/25 11:00 126 14 97 Room Air* 0 21 03/31/25 10:36 98.6 140 16 97/63 (74) 98 98.6 Lab Test 03/31/25 12:11 03/31/25 12:08 03/31/25 10:54 Range/Units POC Glucose 126 H 70-106 mg/dl Lactic Acid Level 1.3 0.4-2.0 mmol/L White Blood Count 18.8 #H 4.4-10.8 10^3/uL Red Blood Count 3.09 L 4.0-5.20 10^6/uL Hemoglobin 9.4 L 12.2-16.2 g/dL Hematocrit 27.0 L 36.0-46.0 % Mean Corpuscular Volume 87.2 80.0-100.0 fL Mean Corpuscular Hemoglobin 30.3 28.0-32.0 pg Mean Corpuscular Hemoglobin Concent 34.7 32.0-36.0 g/dL Red Cell Distribution Width 13.3 11.8-14.3 % Platelet Count 340 140-450 10^3/uL Mean Platelet Volume 8.0 6.9-10.8 fL Neutrophils (%) (Auto) 37.0-80.0 % Lymphocytes (%) (Auto) 10.0-50.0 % Monocytes (%) (Auto) 0.0-12.0 % Basophils (%) (Auto) 0.0-2.0 % Neutrophils # (Auto) 1.6-8.6 10 ^3/uL Lymphocytes # (Auto) 0.4-5.4 10 ^3/uL Monocytes # (Auto) 0-1.3 10 ^3/uL Differential Total Cells Counted 100.0 100 Neutrophils % (Manual) 82 H 37.0-80.0 Band Neutrophils % (Manual) 10 Lymphocytes % (Manual) 5 L 10.0-50.0 Monocytes % (Manual) 2 0-12 Eosinophils % (Manual) 1 0-7 Basophils % (Manual) 0 0.0-2.0 Metamyelocytes % (manual) 0 Myelocytes % (Manual) 0 Promyelocytes % (Manual) 0 Blast Cells % (Manual) 0 Reactive Lymphocytes 0 Platelet Estimate Adequate Red Blood Cell Morphology Normal Prothrombin Time 10.3 9.3-11.8 sec Prothrombin Time INR 0.97 0.9-1.15 Activated Partial Thromboplast Time 25.8 24.5-34.5 SEC Sodium Level 136 136-145 mmol/L Potassium Level 3.8 3.5-5.1 mmol/L Chloride Level 104 98-107 mmol/L Carbon Dioxide Level 20 20-31 mmol/L Anion Gap 12 5-15 Blood Urea Nitrogen 11 9-23 mg/dL Creatinine 0.70 0.550-1.02 mg/dL Glomerular Filtration Rate Calc 119 >90 mL/min BUN/Creatinine Ratio 15.7 10.0-20.0 Serum Glucose 174 H 74-106 mg/dL Calcium Level 9.6 8.7-10.4 mg/dL Total Bilirubin 1.0 0.2-1.0 mg/dL Aspartate Amino Transferase (AST) 20 13-40 U/L Alanine Aminotransferase (ALT) 15 7-40 U/L Alkaline Phosphatase 99 46-116 U/L Total Protein 7.1 5.7-8.2 g/dL Albumin 4.5 3.2-4.8 g/dL Beta HCG, Quantitative 706.6 H 1.5-4.2 mIU/mL Microbiology Date/Time Source Procedure Growth Status 03/31/25 12:08 Blood Blood Culture - Final NO GROWTH AFTER 5 DAYS OF INCUBATION. Complete 03/31/25 12:00 Blood Blood Culture - Final NO GROWTH AFTER 5 DAYS OF INCUBATION. Complete [facility] [id number] [place] [id number] Ph: [phone] DIAGNOSTIC IMAGING Diagnostic Imaging Report : [id number] Signed PATIENT: SHEREE AREVALO ACCT: [id number] UNIT: [id number] : 1995 LOC: ER ROOM / BED: / AGE / SEX: 29 / F ADM STATUS: REG ER SERVICE 1151 ORDERING PHYSICIAN: LANI DIXON DO PROCEDURE(s): CXRP - CHEST PORTABLE REASON: TACHY ORDER NUMBER(s): [id number], ACCESSION NUMBER(s): [id number] EXAM: XY CHEST PORTABLE HISTORY: TACHY COMPARISON: None TECHNIQUE: Portable AP view of the chest was performed. FINDINGS: No pneumothorax, consolidative infiltrates, or pulmonary edema. The heart is not enlarged. IMPRESSION: No acute intrathoracic process. ATED BY: JONATHAN KWON MD DICTATED DATE/TIME: 03/31/251242 SIGNED BY: JONATHAN KWON MD SIGNED DATE/TIME: 03/31/251242 CC: [place] [id number] Ph: [phone] DIAGNOSTIC IMAGING Diagnostic Imaging Report : [id number] Signed PATIENT: SHEREE AREVALO ACCT: [id number] UNIT: [id number] : 1995 LOC: CENTRAL ROOM / BED: 0217 / A AGE / SEX: 29 / F ADM STATUS: DIS IN SERVICE 1042 ORDERING PHYSICIAN: LANI DIXON DO PROCEDURE(s): OB4US - OB ULTRASOUND COMP LESS 14WKS REASON: vag bleed post miscarriage. ORDER NUMBER(s): [id number], ACCESSION NUMBER(s): [id number] OB ULTRASOUND <14 WEEKS: HISTORY: vag bleed post miscarriage. TECHNIQUE: Multiple real-time grayscale sonographic images of the pelvis with duplex Doppler color flow, spectral and M-mode analysis. FINDINGS: The uterus measures 11.1 x 5 x 6.5 cm. It is anteverted. No intrauterine is noted. No sonographic evidence of retained products of conception. Endometrial stripe measures 10.5 mm. No free fluid is noted within the cul-de-sac Right ovary measures 3.1 x 1.8 x 3.6 cm with normal Doppler color flow Left ovary measures 2.6 x 1.8 x 3.0 cm with normal Doppler color flow IMPRESSION: 1. No sonographic evidence of intrauterine or retained products of conception at this time. 2. Bilateral ovaries are within normal limits. 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 patient was found with the above mentioned diagnosis. the following medications were ordered: please refer to order lists of meds and tests obtained by myself Dr. Dixon. Patient ED course and VS have been stabilized. Patient has been reassessed in the ED and remained in a stable condition. Pertinent incidental findings were discussed with the patient and/or family. Patient/family voices understanding and is agreeable with plan. Patient has been observed in the ED adequate length of time to insure improvement/stability. Escalation of care considered: Consideration of escalation to observation or admission Patient was found septic. Sepsis protocol initiated. Patient was ADMITTED to the medicine team for further evaluation and treatment of their presentation. All the reports of any imaging studies that were ordered by myself were reviewed by myself. Departure 1 Departure Time of Disposition: 12:14 Impression: Primary Impression: Vaginal bleeding Additional Impressions: Miscarriage Symptomatic anemia Leukocytosis Sepsis UTI (urinary tract infection) Disposition: ADMITTED INPATIENT Admit to: Tele Condition: Guarded e-Prescriptions Cephalexin Monohydrate (Cephalexin) 500 Mg Cap 1 CAP PO TID for 5 Days, #15 CAP Prov: SAVI OGDEN ASSISTANT CLINICAL NURSE MANAGER 04/02/25 Discharged With: Self Critical Care Note Critical Care Time?: Yes (1 hr-critical care time only) I personally scribed for LANI DIXON DO ([email or web address]) on 03/31/25 at 10:44. Electronically submitted by Hardy Blackwell ([email or web address]). I personally scribed for LANI DIXON DO ([email or web address]) on 03/31/25 at 20:22. Electronically submitted by Hardy Blackwell ([email or web address]). LANI DIXON DO Mar 31, 2025 10:44
[2025-03-31] MEDS: SODIUM CHLORIDE 0.9% 1,000 ML IV ONE ×2 (10:54→11:54)
[2025-03-31 11:00] VITALS: PULSE 126; RESP 14; O2SAT 97
[2025-03-31 11:07] LABS: Hematocrit 27.0 % (36.0-46.0); Hemoglobin 9.4 g/dL (12.2-16.2); Mean Corpuscular Hemoglobin 30.3 pg (28.0-32.0); Mean Corpuscular Volume 87.2 fL (80.0-100.0)
[2025-03-31 12:00] LABS: Total Cells Counted 100.0 (100)
[2025-03-31 12:01] LABS: RBC Morphology Normal
[2025-03-31] MEDS: HYDROcodone-ACET 5/325MG TAB PO ONE (12:03)
[2025-03-31 12:17] LABS: Alanine Aminotransferase 15 U/L (7-40); Albumin 4.5 g/dL (3.2-4.8); Alkaline Phosphatase 99 U/L (46-116); Anion Gap 12 (5-15); BUN/Creatinine Ratio 15.7 (10.0-20.0); Bilirubin, Total 1.0 mg/dL (0.2-1.0); Blood Urea Nitrogen 11 mg/dL (9-23); Calcium 9.6 mg/dL (8.7-10.4); Carbon Dioxide 20 mmol/L (20-31); Chloride 104 mmol/L (98-107); Potassium 3.8 mmol/L (3.5-5.1); Total Protein 7.1 g/dL (5.7-8.2)
[2025-03-31 12:18] LABS: Glucose 174 mg/dL (74-106); Sodium 136 mmol/L (136-145)
[2025-03-31] MEDS: PIPERACILLIN-TAZOB 3.375GM 100 ML IV ONE (12:38)
--- NOTE | 2025-03-31 12:46 | DVH ---
EXAM: XY CHEST PORTABLE HISTORY: TACHY COMPARISON: None TECHNIQUE: Portable AP view of the chest was performed. FINDINGS: No pneumothorax, consolidative infiltrates, or pulmonary edema. The heart is not enlarged. IMPRESSION: No acute intrathoracic process.
[2025-03-31] MEDS ORDERED: MORPHINE SULFATE INJ 2 MG/ml SYRG IV PRN (13:00)
[2025-03-31] MEDS ORDERED: TERBUTALINE SULFATE 1 MG/ML 1ML VIAL SC PRN (13:00)
[2025-03-31] MEDS ORDERED: ONDANSETRON HCL 4 MG/2 ML VIAL IV PRN (13:00)
[2025-03-31 13:10] LABS: INR 0.97 (0.9-1.15); Partial Thromboplastin Time 25.8 SEC (24.5-34.5); Prothrombin Time 10.3 sec (9.3-11.8)
[2025-03-31 13:35] LABS: Hematocrit 24.8 % (36.0-46.0); Hemoglobin 8.5 g/dL (12.2-16.2); Mean Corpuscular Hemoglobin 30.2 pg (28.0-32.0); Mean Corpuscular Volume 87.8 fL (80.0-100.0); Nucleated Red Blood Cells % 0.0 %
[2025-03-31] MEDS ORDERED: DEXTROSE (50%) 50ML SYRG IV PRN (14:00)
--- NOTE | 2025-03-31 14:04 | DVHHP2 ---
History of Present Illness Reason for Visit: Abdominal pain History of Present Illness Shamika Read is a 29-year-old female with no past medical history who presents to the ED with abdominal pain and vaginal bleeding. Patient reports that the current abdominal pain is 0/10. She states that she was having vaginal bleeding since Friday and had miscarried. She stated she came into the hospital was given Pitocin and then discharged Friday. She reports that she is here today because she was having worsening abdominal pain. She reported that during Friday and Friday she was going through 1 pad per hour but states that it resolved then today started to filler picker again. Upon examination she states that it has subsided. Patient's neck is at the bedside. She reports that her abdominal pain is mainly in her right and left lower quadrants. Patient denies any chest pain, shortness of breath, lightheadedness, weakness, dizziness, chest pain, shortness of breath, recent ingestion of spoiled food, recent travels, recent sick contacts, recent trauma or injury, or urinary symptoms. Past Surgical History: None Family History: None Smoke: No ALCOHOL: none Drugs: None Lives: with Family Domestic Violence: Neg Review of Systems Gastrointestinal: Abdominal Pain Other Vaginal bleeding Allergies: Coded Allergies: NO KNOWN ALLERGIES (Unverified , 08/01/24) Exam Vital Signs Vital Signs Date Time Temp Pulse Resp B/P (MAP) Pulse Ox O2 Delivery O2 Flow Rate FiO2 03/31/25 12:00 116 14 110/62 (78) 99 03/31/25 11:00 99.6 99.6 03/31/25 11:00 Room Air* 0 21 General Appearance: Alert, Oriented X3, Cooperative, No acute distress HEENT: Atraumatic, PERRLA, EOMI, Mucous membr. moist/pink Respiratory: Clear to auscultation, Normal air movement Cardiovascular: Normal S1, Normal S2, No murmurs Abdominal: Soft Extremities: No clubbing, No cyanosis, No edema, Normal pulses Skin: No significant lesion Neuro: Normal speech, Strength at 5/5 X4 ext, Normal tone, Sensation intact Psych/Mental Status: Mental status NL, Mood NL Labs/Xrays Labs Test 03/31/25 13:18 03/31/25 12:11 03/31/25 12:08 03/31/25 11:13 Range/Units White Blood Count 15.8 H 4.4-10.8 10^3/uL Red Blood Count 2.82 L 4.0-5.20 10^6/uL Hemoglobin 8.5 L 12.2-16.2 g/dL Hematocrit 24.8 L 36.0-46.0 % Mean Corpuscular Volume 87.8 80.0-100.0 fL Mean Corpuscular Hemoglobin 30.2 28.0-32.0 pg Mean Corpuscular Hemoglobin Concent 34.3 32.0-36.0 g/dL Red Cell Distribution Width 13.5 11.8-14.3 % Platelet Count 305 140-450 10^3/uL Mean Platelet Volume 8.0 6.9-10.8 fL Neutrophils (%) (Auto) 90.6 H 37.0-80.0 % Lymphocytes (%) (Auto) 4.2 L 10.0-50.0 % Monocytes (%) (Auto) 4.1 0.0-12.0 % Eosinophils (%) (Auto) 0.2 0.0-7.0 % Basophils (%) (Auto) 0.9 0.0-2.0 % Neutrophils # (Auto) 14.3 H 1.6-8.6 10 ^3/uL Lymphocytes # (Auto) 0.7 0.4-5.4 10 ^3/uL Monocytes # (Auto) 0.6 0-1.3 10 ^3/uL Eosinophils # (Auto) 0 0-0.8 10 ^3/uL Basophils # (Auto) 0.1 0-0.2 10 ^3/uL Nucleated Red Blood Cells 0.0 % POC Glucose 126 H 70-106 mg/dl Lactic Acid Level 1.3 0.4-2.0 mmol/L Test 03/31/25 10:54 Range/Units Differential Total Cells Counted 100.0 100 Neutrophils % (Manual) 82 H 37.0-80.0 Band Neutrophils % (Manual) 10 Lymphocytes % (Manual) 5 L 10.0-50.0 Monocytes % (Manual) 2 0-12 Eosinophils % (Manual) 1 0-7 Basophils % (Manual) 0 0.0-2.0 Metamyelocytes % (manual) 0 Myelocytes % (Manual) 0 Promyelocytes % (Manual) 0 Blast Cells % (Manual) 0 Reactive Lymphocytes 0 Platelet Estimate Adequate Red Blood Cell Morphology Normal Prothrombin Time 10.3 9.3-11.8 sec Prothrombin Time INR 0.97 0.9-1.15 Activated Partial Thromboplast Time 25.8 24.5-34.5 SEC Sodium Level 136 136-145 mmol/L Potassium Level 3.8 3.5-5.1 mmol/L Chloride Level 104 98-107 mmol/L Carbon Dioxide Level 20 20-31 mmol/L Anion Gap 12 5-15 Blood Urea Nitrogen 11 9-23 mg/dL Creatinine 0.70 0.550-1.02 mg/dL Glomerular Filtration Rate Calc 119 >90 mL/min BUN/Creatinine Ratio 15.7 10.0-20.0 Serum Glucose 174 H 74-106 mg/dL Calcium Level 9.6 8.7-10.4 mg/dL Total Bilirubin 1.0 0.2-1.0 mg/dL Aspartate Amino Transferase (AST) 20 13-40 U/L Alanine Aminotransferase (ALT) 15 7-40 U/L Alkaline Phosphatase 99 46-116 U/L Total Protein 7.1 5.7-8.2 g/dL Albumin 4.5 3.2-4.8 g/dL Beta HCG, Quantitative 706.6 H 1.5-4.2 mIU/mL EXAM: XY CHEST PORTABLE HISTORY: TACHY COMPARISON: None TECHNIQUE: Portable AP view of the chest was performed. FINDINGS: No pneumothorax, consolidative infiltrates, or pulmonary edema. The heart is not enlarged. IMPRESSION: No acute intrathoracic process. SEPSIS Sepsis Screen Date sepsis recognized/suspect: Mar 31, 2025 Time Sepsis recognized/suspect: 1100 Recent Procedure: No On Antibiotic Therapy: No Respiratory Rate >20: No Heart Rate >90: Yes Temp<36 C (96.8 F) or >38.3 C: No SBP <90 or MAP <65 mmHG: No New Acute Mental Status Change: No Is the patient on CPAP, BIPAP,: No Physician Orders Interface Designer (03/31/25 ) Urinalysis (03/31/25 10:42) Electrocardigram (03/31/25 10:42) Ob Ultrasound Comp Less 14wks (03/31/25 10:42) Blood Culture (03/31/25 11:51) Chest Portable (03/31/25 11:51) Accucheck (03/31/25 11:51) Notify Md If Map <65 Or Bp<90 (7/10/25 11:51) If Map<65 Start Vasopressor (03/31/25 11:51) Sepsis Reassesment After Fluid (03/31/25 12:51) Ob Trans Vaginal Us (03/31/25 ) In Addition To Intrapartum Md (03/31/25 12:46) Obtain Baseline Fht Monitoring (03/31/25 12:46) Obtain Consent For Oxytocin In (03/31/25 12:46) Perform Sve For Baseline Of Ce (03/31/25 12:46) Cancel Any Pre-Existing Iv Ord (03/31/25 12:46) Lrw Oxytocin 20unit/1000ml (03/31/25 13:00) Continious Fht Monitoring (03/31/25 12:46) Bp, P, R Q15 Min (03/31/25 12:46) Temperature (03/31/25 12:46) Bedrest (03/31/25 12:46) BRP (03/31/25 12:46) May Sit Or Stand At Bedside (03/31/25 12:46) Assess Cervical Change (03/31/25 12:46) Notify Provider PERPOLICY (03/31/25 12:46) If Uterine Tachysystole (03/31/25 12:46) Terbutaline Inj (Brethine Inj) (03/31/25 13:00) If Uterine Tachysystole Resolv (03/31/25 12:46) If Uterine Tachysystole Resolv (03/31/25 12:46) Cefazolin Ancef (03/31/25 13:00) Admit (03/31/25 12:46) Allergies (03/31/25 12:46) Code Status (03/31/25 12:46) Hydrocodone-Acet 5/325mg Tab ([place] 5/32 (03/31/25 13:00) Ondansetron Hcl (Zofran) (03/31/25 13:00) Complete Blood Count (04/01/25 04:00) Comprehensive Metabolic Panel (04/01/25 04:00) Npo (Nothing By Mouth) Diet (03/31/25 Lunch) Acetaminophen Tablet (Tylenol Tablet) (03/31/25 13:00) Morphine Sulfate Injection (03/31/25 13:00) Sequential Compression Device (03/31/25 ) Vital Signs Date Time Temp Pulse Resp B/P (MAP) Pulse Ox O2 Delivery O2 Flow Rate FiO2 03/31/25 12:00 116 14 110/62 (78) 99 03/31/25 11:00 99.6 126 14 116/67 (83) 97 99.6 03/31/25 11:00 126 14 97 Room Air* 0 21 03/31/25 10:36 98.6 140 16 97/63 (74) 98 98.6 Laboratory Tests Test 03/31/25 10:54 03/31/25 12:08 03/31/25 13:18 White Blood Count 18.8 10^3/uL (4.4-10.8) #H 15.8 10^3/uL (4.4-10.8) H Lactic Acid Level 1.3 mmol/L (0.4-2.0) Medications Medications Dose Ordered Sig/Ingrid Route Start Time Stop Time Status Last Admin Dose Admin Acetaminophen/ Hydrocodone Bitart 1 tab ONCE ONCE PO 03/31/25 11:45 03/31/25 11:46 DC 03/31/25 12:03 1 TAB Piperacillin Sod/ Tazobactam Sod 100 ml @ 100 mls/hr ONCE ONCE IV 03/31/25 12:00 03/31/25 12:59 DC 03/31/25 12:38 100 MLS/HR Sodium Chloride 1,000 ml @ 1,000 mls/hr Q1H ONCE IV 03/31/25 10:45 03/31/25 11:44 DC 03/31/25 10:54 1,000 MLS/HR Sodium Chloride 1,000 ml @ 1,000 mls/hr Q1H ONCE IV 03/31/25 10:45 03/31/25 11:44 DC 03/31/25 11:54 1,000 MLS/HR Assessment/Plan Assessment/Plan Assessment Intractable abdominal pain likely due to miscarriage Leukocytosis likely due to miscarriage Anemia likely due to miscarriage Hyperglycemia Plan Admit to med surge IV antibiotics-Ancef Zosyn given in ED UA Antiemetics Pain management NS 2 L given in ED Oxytocin with LR per Ob OB transvaginal ultrasound Lactic Chest x-ray PT/PTT Blood cultures Manual differential Type and screen EKG HCG noted Hemoglobin A1c ISS and Accu-Cheks Diet DVT prophylaxis-not indicated patient ambulating PUD prophylaxis-not indicated no history of GERD or GI bleed Discussed plan of care with patient, patient's , and nurse Ob consult [id number] Preventive counseling healthy eating habits, physical activity, and regular checkups Plan discussed with: Patient, Spouse My Orders Orders - [facility] DIRECT[facility] Procedure Category Date Status Time In Addition To [facility] 03/31/25 Verified Intrapartum Md 12:46 Obtain Baseline Fht [facility] 03/31/25 Verified Monitoring 12:46 Obtain Consent For 03/31/25 Verified Oxytocin In 12:46 Perform Sve For [facility] 03/31/25 Verified Baseline Of Ce 12:46 Cancel Any [facility] 03/31/25 Verified Pre-Existing Iv Ord 12:46 Lrw Oxytocin [facility] 03/31/25 Verified 20unit/1000ml 13:00 Continious Fht [facility] 03/31/25 Verified Monitoring 12:46 Bp, P, R Q15 Min [facility] 03/31/25 Verified 12:46 Temperature [facility] 03/31/25 Verified 12:46 Bedrest [facility] 03/31/25 Verified 12:46 BRP [facility] 03/31/25 Verified 12:46 May Sit Or Stand At [facility] 03/31/25 Verified Bedside 12:46 Assess Cervical Change [facility] 03/31/25 Verified 12:46 Notify Provider [facility] 03/31/25 Verified 12:46 If Uterine [facility] 03/31/25 Verified Tachysystole 12:46 Terbutaline Inj [facility] 03/31/25 Verified (Brethine Inj) 13:00 If Uterine [facility] 03/31/25 Verified Tachysystole Resolv 12:46 If Uterine [facility] 03/31/25 Verified Tachysystole Resolv 12:46 Cefazolin Ancef [facility] 03/31/25 Verified 13:00 Admit ADMIT 03/31/25 Verified 12:46 Allergies [facility] 03/31/25 Verified 12:46 Code Status CODE 03/31/25 Verified 12:46 Hydrocodone-Acet PHA 03/31/25 Verified 5/325mg Tab ([place] 13:00 Ondansetron Hcl PHA 03/31/25 Verified (Zofran) 13:00 Complete Blood Count LAB 04/01/25 Verified 04:00 Comprehensive LAB 04/01/25 Verified Metabolic Panel 04:00 Npo (Nothing By DIET 03/31/25 Verified Mouth) Diet Lunch Acetaminophen Tablet PHA 03/31/25 Verified (Tylenol Tablet) 13:00 Morphine Sulfate PHA 03/31/25 Verified Injection 13:00 Sequential TEZ 03/31/25 Verified Compression Device Date of Service: Mar 31, 2025 Billing Provider: MARANDA ROLLE Common Visit Codes: [id number] INP/OBS CARE (HIGH) Secondary Visit Codes: [id number] COUNSELING IND MARANDA ROLLE Mar 31, 2025 14:04
[2025-03-31 14:08] LABS: Urine Protein, UAD Negative (Negative); Urine WBC Clumps PRESENT /hpf (None Seen)
[2025-03-31] MEDS: ceFAZolin 1GM/50ML 50 ML IV SCH (14:49)
[2025-03-31] MEDS: LACT. RINGERS/OXYTOCIN 20UNITS 1,000 ML IV SCH (15:30)
[2025-03-31] MEDS: OXYTOCIN 30 UNT in LACTATED RINGER'S 1,000 ML IV ONE (16:02)
[2025-03-31] MEDS: ACETAMINOPHEN 325 MG TAB PO PRN (16:15)
[2025-03-31] MEDS: InsuLIN REG 1unit/0.01ml Soln (100units/ml) SC SCH (20:30)
[2025-03-31] MEDS: ACCU-CHEK COMFORT CURVE STRIP VI SCH (20:30)
[2025-03-31 23:00] VITALS: BP 124/77; PULSE 118; RESP 18; TEMP 100; O2SAT 99
[2025-03-31 23:28] VITALS: PULSE 118; RESP 18
[2025-03-31] MEDS: HYDROcodone-ACET 5/325MG TAB PO PRN (23:53)
[2025-04-01] VITALS (7 sets, daily range): BP systolic 101–124; BP diastolic 69–77; PULSE 96–121; RESP 17–18; TEMP 96.6–99.1; O2SAT 98–99
[2025-04-01 06:32] LABS: Alanine Aminotransferase 30 U/L (7-40); Albumin 4.0 g/dL (3.2-4.8); Alkaline Phosphatase 103 U/L (46-116); Anion Gap 9 (5-15); BUN/Creatinine Ratio 10.0 (10.0-20.0); Carbon Dioxide 23 mmol/L (20-31); Glucose 100 mg/dL (74-106); Potassium 3.7 mmol/L (3.5-5.1); Sodium 139 mmol/L (136-145); Total Protein 6.5 g/dL (5.7-8.2)
[2025-04-01 06:33] LABS: Bilirubin, Total 0.7 mg/dL (0.2-1.0)
[2025-04-01 06:40] LABS: Blood Urea Nitrogen 5 mg/dL (9-23); Calcium 8.5 mg/dL (8.7-10.4); Chloride 107 mmol/L (98-107)
[2025-04-01 06:43] LABS: Hemoglobin 8.3 g/dL (12.2-16.2); Nucleated Red Blood Cells % 0.1 %
[2025-04-01 06:47] LABS: Hematocrit 24.0 % (36.0-46.0); Mean Corpuscular Hemoglobin 30.6 pg (28.0-32.0); Mean Corpuscular Volume 88.3 fL (80.0-100.0)
--- NOTE | 2025-04-01 14:04 | DVHPN2 ---
Subjective Patient denies any symptoms at this time Reviewed: Care Plan, H&P, Labs, Medications Changes from previous H/P or p: No Changes General: Per HPI, Chills Gastrointestinal: Abdominal Pain Objective Vitals Vital Signs Date Time Temp Pulse Resp B/P (MAP) Pulse Ox O2 Delivery O2 Flow Rate FiO2 04/01/25 13:09 98.4 98 17 111/69 (83) 98 98.4 04/01/25 07:30 Room Air* 0 21 Intake/Output Intake and Output 04/01/25 07:00 Intake Total 3000 ml Balance 3000 ml Intake Oral 900 ml IV Total 2100 ml # Voids 2 General Appearance: Alert, Oriented X3, Cooperative, No acute distress HEENT: Atraumatic, PERRLA Lungs: Clear to auscultation, Normal air movement Cardiovascular: Normal S1, Normal S2 Abdomen: Normal bowel sounds, Soft, No tenderness Back: Flank Tenderness, Midline Tenderness Skin: Dry, Intact Psych/Mental Status: Mental status NL, Mood NL Medications Current Medications Medications Dose Ordered Sig/Ingrid Route Start Time Stop Time Status Last Admin Dose Admin Terbutaline Sulfate 0.25 mg ONCE PRN SC 03/31/25 13:00 Cefazolin Sodium 50 ml @ 100 mls/hr Q8HR IV 03/31/25 13:00 04/01/25 13:07 100 MLS/HR Acetaminophen/ Hydrocodone Bitart 1 tab Q4HP PRN PO 03/31/25 13:00 03/31/25 23:53 1 TAB Ondansetron HCl 4 mg Q4HP PRN IV 03/31/25 13:00 Acetaminophen 650 mg Q6HP PRN PO 03/31/25 13:00 03/31/25 16:15 650 MG Morphine Sulfate 2 mg Q4HPRN PRN IV 03/31/25 13:00 Diagnostic Test (Pha) 1 strip ACHS 03/31/25 17:00 04/01/25 10:58 1 STRIP Insulin Human Regular ACHS SC 03/31/25 17:00 03/31/25 22:00 2 UNITS Dextrose 50 ml UD PRN IV 03/31/25 14:00 Laboratory Results Laboratory Tests 04/01/25 05:30 Chemistry Test 04/01/25 05:30 Albumin 4.0 g/dL (3.2-4.8) Calcium Level 8.5 mg/dL (8.7-10.4) L Total Protein 6.5 g/dL (5.7-8.2) LFT Test 04/01/25 05:30 Alanine Aminotransferase (ALT) 30 U/L (7-40) Alkaline Phosphatase 103 U/L (46-116) Aspartate Amino Transferase (AST) 38 U/L (13-40) Total Bilirubin 0.7 mg/dL (0.2-1.0) Urinalysis Test 03/31/25 13:13 Urine Color Light-yellow (Yellow) Urine Clarity Cloudy (Clear) H Urine pH 6.5 (5.0-9.0) Urine Specific [place] 1.006 (1.001-1.035) Urine Protein Negative (Negative) Urine Ketones Negative (Negative) Urine Blood 3+ /uL (Negative) H Urine Nitrite Negative (Negative) Urine Bilirubin Negative (Negative) Urine Urobilinogen Normal mg/dL (Negative) Urine Leukocyte Esterase 3+ /uL (Negative) Urine RBC 79 /hpf (0 - 4) Urine WBC Clumps Present /hpf (None Seen) Urine Microscopic WBC 111 /HPF (0-5) H Urine Squamous Epithelial Cells Few /hpf (<5) Urine Bacteria Few /hpf (None Seen) H Urine Glucose Normal mg/dL (Normal) Microbiology Microbiology Date/Time Source Procedure Growth Status 03/31/25 12:08 Blood Blood Culture - Preliminary NO GROWTH AFTER 24 HOURS OF INCUBATION. Resulted Labs and/or images reviewed: Labs reviewed by me, Image(s) reviewed by me Assessment/Plan Assessment/Plan Impression: -spontaneous miscarriage -abdominal pain, probable sepsis -hyperglycemia -obesity Plan: -OBGYN consultation: Recommendations reviewed with Dr. Parker -continue IV antibiotics with Ancef -discontinue sliding scale, Accu-Cheks -pain management -repeat labs in a.m -reassess for discharge in a.m. Total time spent with patient discussing and formulating plan of care: 35 minutes. This medical document was created using an electronic medical record system with [employer] system. Although this document has been carefully reviewed, there may still be some phonetic and typographical errors. These areas are purely typographical due to imperfections of the software programs, and do not reflect any compromise in the patient's medical care. Plan discussed with: Patient, Other (RN) My Orders Orders - SAVI OGDEN OUTBOUND TELEMARKETING REPRESENTATIVE Procedure Category Date Status Time Basic Metabolic Panel LAB 04/02/25 Verified 04:00 Complete Blood Count LAB 04/02/25 Verified 04:00 Date of Service: Apr 01, 2025 Billing Provider: SAVI OGDEN NP Common Visit Codes: [id number] INP/OBS CARE(HIGH) SAVI OGDEN NP Apr 01, 2025 14:04
--- NOTE | 2025-04-01 15:13 | DVHINCON2 ---
Date of service: Apr 01, 2025 Referring Physician HOSPITALIST Reason for Consultation ABD PAIN,S/P SAB History of Present Illness PT IS FEMALE ADMITTED FOR INTRACTABLE ABD PAIN FOLLOWING SAB.HER PELVIC US IS COMPELEYTELY NL ,ENDOTHICKNESS IS NL .HER BLEEDING IS SCANT NOW. Past Medical History ASTHMA,PREDIABETIC Past Surgical History NONE Family History NA Social History 4 ,4 SAB Patient Family History: Patient reports no known family medical history. Allergies: Coded Allergies: NO KNOWN ALLERGIES (Unverified , 08/01/24) Home Meds No Active Prescriptions or Reported Meds Current Medications Current Medications Medications (Trade) Dose Ordered Sig/Ingrid Route PRN Reason Start Time Stop Time Status Last Admin Diagnostic Test (Pha) (Accu-Chek Comfort Curve T) 1 strip ACHS 03/31/25 17:00 04/01/25 14:02 DC 04/01/25 10:58 Insulin Human Regular (InsuLIN R) ACHS SC 03/31/25 17:00 04/01/25 14:02 DC 03/31/25 22:00 Review of Systems Constitutional: no fever, chill, weight loss HEENT: no eye pain, no hearing loss, no oral lesion, no scleral icterus Heart: no chest pain, no chest pressure Lung: no cough, no dyspnea with exertion Abdomen: see HPI : no pain with urination, normal appearing urine Musculoskeletal: no joint pain, no muscle pain Neurological: no seizure, no loss of sensation, no weakness in extremities Pysch: no depression, no anxiety Derm: no rash, no jaundice Vital Signs Vital Signs Date Time Temp Pulse Resp B/P (MAP) Pulse Ox O2 Delivery O2 Flow Rate FiO2 04/01/25 13:09 98.4 98 17 111/69 (83) 98 98.4 04/01/25 07:30 Room Air* 0 21 Physical Exam SKIN: [NL ] HEENT: [PALE] NECK: [NL] CARDIAC: [RRR] PULMONARY: [CTA] ABDOMEN: [SOFT,NY] MUSCULOSKELETAL: [NL PELVIC- NO BLEEDING NOTED,CX NL,UTERUS 10 WKS SIZE NL Labs/Diagnostic Data Labs Test 04/01/25 10:50 04/01/25 05:30 03/31/25 13:18 03/31/25 13:13 Range/Units POC Glucose 92 70-106 mg/dl White Blood Count 13.2 H 4.4-10.8 10^3/uL Red Blood Count 2.71 L 4.0-5.20 10^6/uL Hemoglobin 8.3 L 12.2-16.2 g/dL Hematocrit 24.0 L 36.0-46.0 % Mean Corpuscular Volume 88.3 80.0-100.0 fL Mean Corpuscular Hemoglobin 30.6 28.0-32.0 pg Mean Corpuscular Hemoglobin Concent 34.6 32.0-36.0 g/dL Red Cell Distribution Width 13.6 11.8-14.3 % Platelet Count 317 140-450 10^3/uL Mean Platelet Volume 8.0 6.9-10.8 fL Neutrophils (%) (Auto) 79.8 37.0-80.0 % Lymphocytes (%) (Auto) 13.7 10.0-50.0 % Monocytes (%) (Auto) 5.6 0.0-12.0 % Eosinophils (%) (Auto) 0.6 0.0-7.0 % Basophils (%) (Auto) 0.3 0.0-2.0 % Neutrophils # (Auto) 10.5 H 1.6-8.6 10 ^3/uL Lymphocytes # (Auto) 1.8 0.4-5.4 10 ^3/uL Monocytes # (Auto) 0.7 0-1.3 10 ^3/uL Eosinophils # (Auto) 0.1 0-0.8 10 ^3/uL Basophils # (Auto) 0 0-0.2 10 ^3/uL Nucleated Red Blood Cells 0.1 % Sodium Level 139 136-145 mmol/L Potassium Level 3.7 3.5-5.1 mmol/L Chloride Level 107 98-107 mmol/L Carbon Dioxide Level 23 20-31 mmol/L Anion Gap 9 5-15 Blood Urea Nitrogen 5 L 9-23 mg/dL Creatinine 0.50 L 0.550-1.02 mg/dL Glomerular Filtration Rate Calc 129 >90 mL/min BUN/Creatinine Ratio 10.0 10.0-20.0 Serum Glucose 100 74-106 mg/dL Calcium Level 8.5 L 8.7-10.4 mg/dL Total Bilirubin 0.7 0.2-1.0 mg/dL Aspartate Amino Transferase (AST) 38 13-40 U/L Alanine Aminotransferase (ALT) 30 7-40 U/L Alkaline Phosphatase 103 46-116 U/L Total Protein 6.5 5.7-8.2 g/dL Albumin 4.0 3.2-4.8 g/dL Hemoglobin A1c 4.9 <5.7 % A1C Urine Color Light-yellow Yellow Urine Clarity Cloudy H Clear Urine pH 6.5 5.0-9.0 Urine Specific [place] 1.006 1.001-1.035 Urine Protein Negative Negative Urine Ketones Negative Negative Urine Blood 3+ H Negative /uL Urine Nitrite Negative Negative Urine Bilirubin Negative Negative Urine Urobilinogen Normal Negative mg/dL Urine Leukocyte Esterase 3+ Negative /uL Urine RBC 79 0 - 4 /hpf Urine WBC Clumps Present None Seen /hpf Urine Microscopic WBC 111 H 0-5 /HPF Urine Squamous Epithelial Cells Few <5 /hpf Urine Bacteria Few H None Seen /hpf Urine Glucose Normal Normal mg/dL Test 03/31/25 12:08 03/31/25 10:54 Range/Units Lactic Acid Level 1.3 0.4-2.0 mmol/L Differential Total Cells Counted 100.0 100 Neutrophils % (Manual) 82 H 37.0-80.0 Band Neutrophils % (Manual) 10 Lymphocytes % (Manual) 5 L 10.0-50.0 Monocytes % (Manual) 2 0-12 Eosinophils % (Manual) 1 0-7 Basophils % (Manual) 0 0.0-2.0 Metamyelocytes % (manual) 0 Myelocytes % (Manual) 0 Promyelocytes % (Manual) 0 Blast Cells % (Manual) 0 Reactive Lymphocytes 0 Platelet Estimate Adequate Red Blood Cell Morphology Normal Prothrombin Time 10.3 9.3-11.8 sec Prothrombin Time INR 0.97 0.9-1.15 Activated Partial Thromboplast Time 25.8 24.5-34.5 SEC Beta HCG, Quantitative 706.6 H 1.5-4.2 mIU/mL Microbiology Date/Time Source Procedure Growth Status 03/31/25 12:08 Blood Blood Culture - Preliminary NO GROWTH AFTER 24 HOURS OF INCUBATION. Resulted Primary Diagnosis ABD PAIN DUE TO SAB RESOLVING S/P COMPELET AB 2' Diagnosis/Comorbidities ANEMIA DUE TO SAB Plan RECOMMEND FESO4 AFTER DC MAY FOLLOW WITH US WILL SIGN OFF THANK YOU Plan discussed with: Patient Visit Coding OBGYN Date of Service: Apr 01, 2025 Billing Provider: CONNOR AYALA DO MANAGER TRACK Common Visit Codes: [id number] OBS CARE (HIGH) MANAGER TRACK Consultation Codes: [id number] CONSULT <80MIN CONNOR AYALA DO Apr 01, 2025 15:13
[2025-04-02 01:00] VITALS: BP 104/71; PULSE 94; RESP 17; TEMP 97.9; O2SAT 98
[2025-04-02 05:00] VITALS: BP 111/72; PULSE 86; RESP 18; TEMP 99.1; O2SAT 100
[2025-04-02 07:40] LABS: Hematocrit 25.6 % (36.0-46.0); Hemoglobin 8.8 g/dL (12.2-16.2); Mean Corpuscular Hemoglobin 30.0 pg (28.0-32.0); Mean Corpuscular Volume 87.1 fL (80.0-100.0); Nucleated Red Blood Cells % 0.1 %
[2025-04-02 07:47] LABS: Calcium 9.8 mg/dL (8.7-10.4); Chloride 104 mmol/L (98-107); Potassium 3.6 mmol/L (3.5-5.1); Sodium 139 mmol/L (136-145)
[2025-04-02 07:48] LABS: Anion Gap 10 (5-15); Carbon Dioxide 25 mmol/L (20-31)
[2025-04-02 07:53] LABS: BUN/Creatinine Ratio 21.1 (10.0-20.0); Blood Urea Nitrogen 12 mg/dL (9-23); Glucose 85 mg/dL (74-106)
[2025-04-02 08:25] VITALS: PULSE 74
[2025-04-02 08:57] VITALS: BP 102/55; PULSE 74; RESP 18; TEMP 97.9; O2SAT 99
[2025-04-02] MEDS ORDERED: CEPH500C PO (12:27)
--- NOTE | 2025-04-02 12:30 | DVHDS2 ---
Discharge Summary Date of Admission Mar 31, 2025 at 12:46 Date of Discharge: Apr 02, 2025 Admitting Diagnosis Intractable abdominal pain Labs/Diagnostic Data: Laboratory Results Test 04/02/25 06:14 04/01/25 10:50 04/01/25 05:30 03/31/25 13:18 White Blood Count 8.9 10^3/uL (4.4-10.8) Red Blood Count 2.94 10^6/uL (4.0-5.20) Hemoglobin 8.8 g/dL (12.2-16.2) Hematocrit 25.6 % (36.0-46.0) Mean Corpuscular Volume 87.1 fL (80.0-100.0) Mean Corpuscular Hemoglobin 30.0 pg (28.0-32.0) Mean Corpuscular Hemoglobin Concent 34.5 g/dL (32.0-36.0) Red Cell Distribution Width 13.6 % (11.8-14.3) Platelet Count 375 10^3/uL (140-450) Mean Platelet Volume 7.9 fL (6.9-10.8) Neutrophils (%) (Auto) 63.3 % (37.0-80.0) Lymphocytes (%) (Auto) 25.3 % (10.0-50.0) Monocytes (%) (Auto) 8.1 % (0.0-12.0) Eosinophils (%) (Auto) 2.7 % (0.0-7.0) Basophils (%) (Auto) 0.6 % (0.0-2.0) Neutrophils # (Auto) 5.6 10 ^3/uL (1.6-8.6) Lymphocytes # (Auto) 2.2 10 ^3/uL (0.4-5.4) Monocytes # (Auto) 0.7 10 ^3/uL (0-1.3) Eosinophils # (Auto) 0.2 10 ^3/uL (0-0.8) Basophils # (Auto) 0.1 10 ^3/uL (0-0.2) Nucleated Red Blood Cells 0.1 % Sodium Level 139 mmol/L (136-145) Potassium Level 3.6 mmol/L (3.5-5.1) Chloride Level 104 mmol/L (98-107) Carbon Dioxide Level 25 mmol/L (20-31) Anion Gap 10 (5-15) Blood Urea Nitrogen 12 mg/dL (9-23) Creatinine 0.57 mg/dL (0.550-1.02) Glomerular Filtration Rate Calc 125 mL/min (>90) BUN/Creatinine Ratio 21.1 (10.0-20.0) Serum Glucose 85 mg/dL (74-106) Calcium Level 9.8 mg/dL (8.7-10.4) POC Glucose 92 mg/dl (70-106) Total Bilirubin 0.7 mg/dL (0.2-1.0) Aspartate Amino Transferase (AST) 38 U/L (13-40) Alanine Aminotransferase (ALT) 30 U/L (7-40) Alkaline Phosphatase 103 U/L (46-116) Total Protein 6.5 g/dL (5.7-8.2) Albumin 4.0 g/dL (3.2-4.8) Hemoglobin A1c 4.9 % A1C (<5.7) Test 03/31/25 13:13 03/31/25 12:08 03/31/25 10:54 Urine Color Light-yellow (Yellow) Urine Clarity Cloudy (Clear) Urine pH 6.5 (5.0-9.0) Urine Specific [place] 1.006 (1.001-1.035) Urine Protein Negative (Negative) Urine Ketones Negative (Negative) Urine Blood 3+ /uL (Negative) Urine Nitrite Negative (Negative) Urine Bilirubin Negative (Negative) Urine Urobilinogen Normal mg/dL (Negative) Urine Leukocyte Esterase 3+ /uL (Negative) Urine RBC 79 /hpf (0 - 4) Urine WBC Clumps Present /hpf (None Seen) Urine Microscopic WBC 111 /HPF (0-5) Urine Squamous Epithelial Cells Few /hpf (<5) Urine Bacteria Few /hpf (None Seen) Urine Glucose Normal mg/dL (Normal) Lactic Acid Level 1.3 mmol/L (0.4-2.0) Differential Total Cells Counted 100.0 (100) Neutrophils % (Manual) 82 (37.0-80.0) Band Neutrophils % (Manual) 10 Lymphocytes % (Manual) 5 (10.0-50.0) Monocytes % (Manual) 2 (0-12) Eosinophils % (Manual) 1 (0-7) Basophils % (Manual) 0 (0.0-2.0) Metamyelocytes % (manual) 0 Myelocytes % (Manual) 0 Promyelocytes % (Manual) 0 Blast Cells % (Manual) 0 Reactive Lymphocytes 0 Platelet Estimate Adequate Red Blood Cell Morphology Normal Prothrombin Time 10.3 sec (9.3-11.8) Prothrombin Time INR 0.97 (0.9-1.15) Activated Partial Thromboplast Time 25.8 SEC (24.5-34.5) Beta HCG, Quantitative 706.6 mIU/mL (1.5-4.2) Other Laboratory Tests 04/02/25 06:14 Brief Hx & Hospital Course: History of Present Illness Shamika Read is a 29-year-old female with no past medical history who presents to the ED with abdominal pain and vaginal bleeding. Patient reports that the current abdominal pain is 0/10. She states that she was having vaginal bleeding since Friday and had miscarried. She stated she came into the hospital was given Pitocin and then discharged Friday. She reports that she is here today because she was having worsening abdominal pain. 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 Upon examination she states that it has subsided. Patient's neck is at the bedside. She reports that her abdominal pain is mainly in her right and left lower quadrants. Patient denies any chest pain, shortness of breath, lightheadedness, weakness, dizziness, chest pain, shortness of breath, recent ingestion of spoiled food, recent travels, recent sick contacts, recent trauma or injury, or urinary symptoms. Course of hospitalization: Placed and was placed on IV hydration, IV Ancef. Patient's fevers resolved. White blood cell count is now normal. Patient states that clinically she is feeling much better and would like to be discharged home. Patient will be continued on antibiotic therapy with Keflex 500 mg p.o. t.i.d. for the next five days. She is instructed to follow up with her PCP in 1-2 weeks. All questions answered. Physical examination General: Alert and Oriented x3. No acute distress. Well-nourished. Eyes: EOMI. Anicteric. HENT: Moist mucous membranes. Lungs: Clear to auscultation bilaterally. No accessory muscle use. Cardiovascular: Regular rate and rhythm. No murmur. No JVD. Abdomen: Soft, non-tender and non-distended. No palpable masses. Extremities: No edema. Non-tender. Skin: No rashes or lesions. Warm. Neurologic: No focal neurological deficits. CN II-XII grossly intact, but not individually tested. Psychiatric: Cooperative. Appropriate mood and affect. Total time spent with patient discussing and formulating plan of care: 35 minutes. This medical document was created using an electronic medical record system with [employer] dictation system. Although this document has been carefully reviewed, there may still be some phonetic and typographical errors. These areas are purely typographical due to imperfections of the software programs, and do not reflect any compromise in the patient's medical care. Consults/Reason for consult OBGYN: Recent spontaneous Condition at Discharge: Fair Final Diagnosis/Problems List Sepsis, secondary to UTI and recently spontaneous Secondary diagnosis: -spontaneous miscarriage -abdominal pain, probable sepsis -hyperglycemia -obesity Discharge Disposition: Home Discharge Instruct/Medications Diet: Regular Activity: No Restrictions, As Tolerated Follow Up/Referral: Follow up with PCP in 1-2 weeks Medications: Keflex 500 mg p.o. t.i.d. x5 days Scheduled Cephalexin Monohydrate (Cephalexin), 1 CAP PO TID 36 Discharge Statement: "Patient was advised to return to the ER or call 911 if any headaches, dizziness, shortness of breath, chest pain, abdominal pain, bleeding, fevers, or worsening of medical condition. Patient was counseled about treatment plan, medications, possible side effects, patientverbalized understanding. All questions were answered to the best of my ability. This discharge took greater then 30 minutes in planning, reviewing documentation, counseling the patient, and discussing with other team members." ASSESSMENT ASSESSMENT Assessment Sepsis, secondary to UTI and recently spontaneous Date of Service: Apr 02, 2025 Billing Provider: SAVI OGDEN NP Common Visit Codes: [id number] INP/OBS CARE(HIGH) SAVI OGDEN NP Apr 02, 2025 12:30
[2025-04-02 12:45] VITALS: BP 110/65; PULSE 87; RESP 17; TEMP 98; O2SAT 97
[2025-04-02 14:20] VITALS: BP 110/65; PULSE 87; RESP 17; TEMP 36.7; O2SAT 97
--- NOTE | 2025-04-04 08:27 | DVH ---
OB ULTRASOUND <14 WEEKS: HISTORY: vag bleed post miscarriage. TECHNIQUE: Multiple real-time grayscale sonographic images of the pelvis with duplex Doppler color flow, spectral and M-mode analysis. FINDINGS: The uterus measures 11.1 x 5 x 6.5 cm. It is anteverted. No intrauterine is noted. No sonographic evidence of retained products of conception. Endometrial stripe measures 10.5 mm. No free fluid is noted within the cul-de-sac Right ovary measures 3.1 x 1.8 x 3.6 cm with normal Doppler color flow Left ovary measures 2.6 x 1.8 x 3.0 cm with normal Doppler color flow IMPRESSION: 1. No sonographic evidence of intrauterine or retained products of conception at this time. 2. Bilateral ovaries are within normal limits. A AMARO
== END 2025-04-02 14:55 | disposition home or self-care (01) | DRG 779 ==
LOC: ER 10:26 → OVERFLOW 12:46 → CENTRAL 22:49
PROVIDERS: ADMIT Nurse Practitioner Acute Care; ATTEND Nurse Practitioner Acute Care
DX: O03.87 Sepsis following complete or unspecified spontaneous abortion (principal); A41.9 Sepsis, unspecified organism; N39.0 Urinary tract infection, site not specified; O03.88 Urinary tract infection following complete or unspecified spontaneous abortion; R73.9 Hyperglycemia, unspecified; D64.9 Anemia, unspecified; O03.89 Complete or unspecified spontaneous abortion with other complications; E66.9 Obesity, unspecified; J45.909 Unspecified asthma, uncomplicated; Z79.899 Other long term (current) drug therapy
CPT/HCPCS: 36415; 71045; 76801; 76817; 80048; 80053; 81001; 82962; 83036; 83605; 84702; 85007; 85025; 85027; 85610; 85730; 86850; 86900; 86901; 87040; 87081; 96361; 96365; G0378; J1815; J2543; J2590

== ENCOUNTER 2025-08-05 00:15 | Emergency (ER) | payer BC ==
[~2025-08-05] VITALS: Ht 160 cm; Wt 71.8 kg
[~2025-08-05 00:15] MED LIST changes: +CEPH500C PO; -NITR-87 PO
--- NOTE | 2025-08-05 00:32 | ECG ---
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
--- NOTE | 2025-08-05 00:39 | ED.PDOC ---
STOP ATTACHER HPI Comments HPI: Poor Historian. 29-year-old female brought in by ambulance from home status post vaginal bleed passing at least five large blood clots will. Patient had a syncopal episode without head injury or fall. She was leaning against the bathroom door while sitting in the toilet. Her has been assisted her. Patient appears pale and weak and dizzy. Patient is , 4 miscarriages. Patient thinks she is possibly having a miscarriage at this time. Denies any events that led to this. She had an ultrasound done two days ago that was unremarkable showing that she is 12 weeks . Past Medical History: Denies any Past Surgical History: Denies any REVIEW OF SYSTEMS: CONSTITUTIONAL: Denies acute: fever, diaphoresis, chills, HEAD: Denies acute: headache, photophobia Eyes: Denies acute: Double vision, vision loss, eye pain, eye discharge. EARS: Denies acute: tinnitus, hearing loss, ear discharge, ear pain, THROAT: Denies acute: sore throat, swelling, difficulty swallowing , pain with swallowing, change in voice. NECK: Denies acute: neck pain, neck swelling, stiff neck. HEART: Denies acute : chest pain, palpitations, LUNGS: Denies acute: SOB, wheezing, cough, hemoptysis ABDOMEN: Denies acute: Nausea, Vomiting, diarrhea, melena , hematemesis, hematochezia SKIN: Denies acute: rash, redness, lesions, itchiness. EXTREMITIES: Denies acute: calf pain, numbness, tingling, weakness, denies pain in extremity. Denies acute: Low back pain. Neuro: Denies acute: focal neurological deficit, motor or sensory focal neurological deficit, tremors, seizure like activity, confusion, change in mental status, loss of bowel or bladder function, cauda equina like symptoms. : Denies acute: dysuria, hematuria, flank pain, increase in urinary frequency. PSYCH: Denies acute: hallucination, suicidal ideation, homicidal ideation. FEMALE: Denies acute: foul odor, unusual discharge. PHYSICAL EXAM: General: ---moderate-----acute distress, awake and alert. Head: normocephalic, atraumatic. No raccoon's eyes, no lomeli sign. Neck: supple, trachea is midline, no swelling. Throat: Normal phonation. Eyes:, no erythema, no purulent discharge, no proptosis, no icterus. Heart: regular rate, regular rhythm, no significant murmur appreciated. Lungs: no apparent respiratory distress, Able to speak in full sentences. No wheezing, no rhonchi, no crackles. No stridors Clear to auscultation bilaterally. Abdomen: Suprapubic tender to palpation, non distended, soft, no guarding, no rebound, + bowel sounds. Neuro: Awake, Alert, oriented to name, self, situation, follows commands GCS=15. Speech is normal. Skin: no petechia, no purpura, no cyanosis, noted-pale, not jaundice. Lower extremities: --no - Pitting edema no deformity, no focal swelling, no calf TTP. Makes eye contact. moves all four extremities. Face: no apparent facial droop. Ambulating in the ED independently. ED COURSE: DISCLAIMER: This medical document was created using an electronic medical record system with voice recognition software and computerized dictation system. Although this document has been carefully reviewed, there might still be some phonetic and ty pographical errors. Occasional wrong-word or "sound-alike" substitutions may have occurred due to the inherent limitations of voice recognition software. These areas are purely typographical due to imperfections of the software programs and do not reflect any compromise in the patient's medical care. Please read the chart carefully and recognize, using context, where these substitutions have occurred. 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 Social History Smoker: Non-Smoker Alcohol: Denies ETOH Use Drugs: Denies Drug Use X-Ray, Labs, Meds, VS Vital Signs Date Time Temp Pulse Resp B/P (MAP) Pulse Ox O2 Delivery O2 Flow Rate FiO2 08/05/25 02:13 77 11 100 Room Air* 0 21 08/05/25 00:33 74 14 104/59 (74) 100 08/05/25 00:25 69 08/05/25 00:18 98.3 110 20 132/88 100 98.3 Lab Test 08/05/25 02:30 08/05/25 01:53 08/05/25 01:30 08/05/25 00:41 Range/Units Hemoglobin 9.3 L 10.6 L 12.2-16.2 g/dL Hematocrit 27.8 #L 31.4 L 36.0-46.0 % POC Glucose 90 70-106 mg/dl Urine Color Colorless Yellow Urine Clarity Turbid H Clear Urine pH 6.5 5.0-9.0 Urine Specific [place] 1.009 1.001-1.035 Urine Protein 1+ H Negative Urine Ketones Negative Negative Urine Blood 3+ H Negative /uL Urine Nitrite Negative Negative Urine Bilirubin Negative Negative Urine Urobilinogen Normal Negative mg/dL Urine Leukocyte Esterase 1+ Negative /uL Urine RBC 1861 0 - 4 /hpf Urine Microscopic WBC 16 H 0-5 /HPF Urine Squamous Epithelial Cells None seen <5 /hpf Urine Bacteria None seen None Seen /hpf Urine Glucose Normal Normal mg/dL White Blood Count 9.1 4.4-10.8 10^3/uL Red Blood Count 3.88 L 4.0-5.20 10^6/uL Mean Corpuscular Volume 80.9 80.0-100.0 fL Mean Corpuscular Hemoglobin 27.2 L 28.0-32.0 pg Mean Corpuscular Hemoglobin Concent 33.7 32.0-36.0 g/dL Red Cell Distribution Width 17.8 H 11.8-14.3 % Platelet Count 251 140-450 10^3/uL Mean Platelet Volume 9.1 6.9-10.8 fL Neutrophils (%) (Auto) 71.2 37.0-80.0 % Lymphocytes (%) (Auto) 21.2 10.0-50.0 % Monocytes (%) (Auto) 5.2 0.0-12.0 % Eosinophils (%) (Auto) 1.8 0.0-7.0 % Basophils (%) (Auto) 0.6 0.0-2.0 % Neutrophils # (Auto) 6.5 1.6-8.6 10 ^3/uL Lymphocytes # (Auto) 1.9 0.4-5.4 10 ^3/uL Monocytes # (Auto) 0.5 0-1.3 10 ^3/uL Eosinophils # (Auto) 0.2 0-0.8 10 ^3/uL Basophils # (Auto) 0.1 0-0.2 10 ^3/uL Nucleated Red Blood Cells 0.0 % Sodium Level 138 136-145 mmol/L Potassium Level 3.2 L 3.5-5.1 mmol/L Chloride Level 106 98-107 mmol/L Carbon Dioxide Level 21 20-31 mmol/L Anion Gap 11 5-15 Blood Urea Nitrogen 6 L 9-23 mg/dL Creatinine 0.44 L 0.550-1.02 mg/dL Glomerular Filtration Rate Calc 133 >90 mL/min BUN/Creatinine Ratio 13.6 10.0-20.0 Serum Glucose 108 H 74-106 mg/dL Calcium Level 8.5 L 8.7-10.4 mg/dL Total Bilirubin 0.6 0.2-1.0 mg/dL Aspartate Amino Transferase (AST) 15 13-40 U/L Alanine Aminotransferase (ALT) < 9 7-40 U/L Alkaline Phosphatase 72 46-116 U/L Total Protein 6.3 5.7-8.2 g/dL Albumin 3.8 3.2-4.8 g/dL Beta HCG, Quantitative 58618.6 H 1.5-4.2 mIU/mL Current Medications Medications (Trade) Dose Ordered Sig/Ingrid Route Start Time Stop Time Status Last Admin Sodium Chloride 1,000 ml @ 1,000 mls/hr Q1H ONCE IV 08/05/25 00:45 08/05/25 01:44 DC 08/05/25 00:[address] [address] Ph: [phone] DIAGNOSTIC IMAGING Diagnostic Imaging Report : [id number] Signed PATIENT: SHEREE AREVALO ACCT: [id number] UNIT: [id number] : 1995 LOC: ER ROOM / BED: / AGE / SEX: 29 / F ADM STATUS: REG ER SERVICE ORDERING PHYSICIAN: LANI DIXON DO PROCEDURE(s): OB4US - OB ULTRASOUND COMP LESS 14WKS REASON: vag bleed, poss miscarriage ORDER NUMBER(s): [id number], ACCESSION NUMBER(s): [id number] OB ULTRASOUND <14 WEEKS: HISTORY: vag bleed, poss miscarriage TECHNIQUE: Multiple real-time grayscale sonographic images of the pelvis with duplex Doppler color flow, spectral and M-mode analysis. FINDINGS: Transabdominal images were obtained. The uterus measures 13.5 x 8.3 x 10.7 cm. The ovaries were not visualized. IUP single live fetus at 12 weeks 5 days average ultrasound age based on mean crown-rump length of 6.3 cm. heart rate detected at 163 beats per minute. There is a possible small subchorionic hematoma. IMPRESSION: 1. Single viable intrauterine with sonographic age of 12 weeks 5 days. Possible small subchorionic hematoma. Close clinical and sonographic follow-up is suggested. ATED BY: SEAN HOROWITZ MD DICTATED DATE/TIME: 08/05/25142 SIGNED BY: SEAN HOROWITZ MD SIGNED DATE/TIME: 08/05/25142 CC: Departure 1 Departure Time of Disposition: 02:20 Impression: Primary Impression: Threatened Additional Impressions: Vaginal bleeding during Subchorionic hemorrhage UTI in Anemia Disposition: HOME / SELF CARE / HOMELESS Condition: Stable Additional Instructions: Additional instructions: Please read all instructions provided in this packet carefully. You MUST follow-up with your primary care/family doctor in 1 to 2 days. If you are unable to see your primary care/family doctor, please return to our emergency room for re-assessment and re-evaluation in 1 to 2 days. Return to the emergency room here in our facility or to the nearest ER [facility] if your symptoms change or worsen. CONSULTATIONS: you MUST Follow-up for consultation as soon as possible with: Gyne doctor in 1-2 days. Please call for appointment. You MUST call the consultants office yourself to make an appointment. You may need to arrange that through your insurance and/or your primary/family doctor. If you are unable to see the telesales consultant in 1 to 2 days, you must return to our emergency room (or any other ER of your choice) for re-assessment and re- evaluation. Adequate fluid hydration. Although you have been discharged from the Emergency Department, this does not mean that you have a "clean bill of health". No definitive diagnosis for your symptoms has been made today. It is possible that you are in the process of developing a serious illness. This is why you must return to the ED without fail if any new or worsening symptoms develop. Repeat beta-hCG levels in 48-72 [place] [address].6. Repeat CBC levels in 48-72 hours. Repeat pelvic ultrasound in 4-5 days. Absolute pelvic rest. Take daily iron supplements for the next seven days. Below is a copy of your radiological report for follow up: [place] [address] Ph: [phone] DIAGNOSTIC IMAGING Diagnostic Imaging Report : [id number] Signed PATIENT: SHEREE AREVALO ACCT: [id number] UNIT: [id number] : 1995 LOC: ER ROOM / BED: / AGE / SEX: 29 / F ADM STATUS: REG ER SERVICE [id number] ORDERING PHYSICIAN: LANI DIXON DO PROCEDURE(s): OB4US - OB ULTRASOUND COMP LESS 14WKS REASON: vag bleed, poss miscarriage ORDER NUMBER(s): [id number], ACCESSION NUMBER(s): [id number] OB ULTRASOUND <14 WEEKS: HISTORY: vag bleed, poss miscarriage TECHNIQUE: Multiple real-time grayscale sonographic images of the pelvis with duplex Doppler color flow, spectral and M-mode analysis. FINDINGS: Transabdominal images were obtained. The uterus measures 13.5 x 8.3 x 10.7 cm. The ovaries were not visualized. IUP single live fetus at 12 weeks 5 days average ultrasound age based on mean crown-rump length of 6.3 cm. heart rate detected at 163 beats per minute. There is a possible small subchorionic hematoma. IMPRESSION: 1. Single viable intrauterine with sonographic age of 12 weeks 5 days. Possible small subchorionic hematoma. Close clinical and sonographic follow-up is suggested. ATED BY: SEAN HOROWITZ MD DICTATED DATE/TIME: 08/05/25142 SIGNED BY: SEAN HOROWITZ MD SIGNED DATE/TIME: 08/05/25142 CC: e-Prescriptions Cephalexin Monohydrate (Cephalexin) 500 Mg Cap 500 MG PO Q8HR for 5 Days, #15 CAP Prov: LANI DIXON DO 08/05/25 Discharged With: Self LANI DIXON DO Aug 05, 2025 00:39
[2025-08-05] MEDS: SODIUM CHLORIDE 0.9% 1,000 ML IV ONE (00:44)
[2025-08-05 01:05] LABS: Hematocrit 31.4 % (36.0-46.0); Hemoglobin 10.6 g/dL (12.2-16.2); Mean Corpuscular Hemoglobin 27.2 pg (28.0-32.0); Mean Corpuscular Volume 80.9 fL (80.0-100.0); Nucleated Red Blood Cells % 0.0 %
[2025-08-05 01:11] LABS: Albumin 3.8 g/dL (3.2-4.8); Alkaline Phosphatase 72 U/L (46-116); Anion Gap 11 (5-15); BUN/Creatinine Ratio 13.6 (10.0-20.0); Carbon Dioxide 21 mmol/L (20-31); Chloride 106 mmol/L (98-107); Sodium 138 mmol/L (136-145); Total Protein 6.3 g/dL (5.7-8.2)
[2025-08-05 01:12] LABS: Bilirubin, Total 0.6 mg/dL (0.2-1.0)
[2025-08-05 01:19] LABS: Alanine Aminotransferase < 9 U/L (7-40); Blood Urea Nitrogen 6 mg/dL (9-23); Calcium 8.5 mg/dL (8.7-10.4); Glucose 108 mg/dL (74-106); Potassium 3.2 mmol/L (3.5-5.1)
--- NOTE | 2025-08-05 01:46 | DVH ---
OB ULTRASOUND <14 WEEKS: HISTORY: vag bleed, poss miscarriage TECHNIQUE: Multiple real-time grayscale sonographic images of the pelvis with duplex Doppler color flow, spectral and M-mode analysis. FINDINGS: Transabdominal images were obtained. The uterus measures 13.5 x 8.3 x 10.7 cm. The ovaries were not visualized. IUP single live fetus at 12 weeks 5 days average ultrasound age based on mean crown-rump length of 6.3 cm. heart rate detected at 163 beats per minute. There is a possible small subchorionic hematoma. IMPRESSION: 1. Single viable intrauterine with sonographic age of 12 weeks 5 days. Possible small subchorionic hematoma. Close clinical and sonographic follow-up is suggested.
[2025-08-05 01:51] LABS: Urine Protein, UAD 1+ (Negative)
[2025-08-05] MEDS ORDERED: CEPH500C PO (02:06)
[2025-08-05 02:13] VITALS: PULSE 77; RESP 11; O2SAT 100
[2025-08-05 02:46] LABS: Hemoglobin 9.3 g/dL (12.2-16.2)
[2025-08-05 02:50] LABS: Hematocrit 27.8 % (36.0-46.0)
[2025-08-05 03:00] VITALS: TEMP 98.3
[2025-08-05 05:30] VITALS: BP 101/52; PULSE 76; RESP 14; O2SAT 97
== END 2025-08-05 06:00 | disposition home or self-care (01) ==
LOC: ER 00:15 → EDBD 00:15 → ER 06:00
DX: O20.0 Threatened abortion (principal); O23.41 Unspecified infection of urinary tract in pregnancy, first trimester; O99.011 Anemia complicating pregnancy, first trimester; N39.0 Urinary tract infection, site not specified; Z3A.12 12 weeks gestation of pregnancy; Z95.0 Presence of cardiac pacemaker
CPT/HCPCS: 36415; 76801; 80053; 81001; 82947; 84702; 85014; 85018; 85025; 86850; 86900; 86901; 93005; 96360; 99285; J7030; 82962